=== PATIENT | female | born 1980 | race Caucasian/White ===

== ENCOUNTER 2021-03-13 18:08 | Emergency (ER) | payer OTHER, SELFPAY ==
--- NOTE | ~2021-03-13 | XR_ITS ---
EXAMINATION: XR CHEST CLINICAL INFORMATION: TIA COMPARISON: None TECHNIQUE: Frontal view of the chest was obtained. FINDINGS: No significant abnormality is noted involving the heart, lungs, mediastinum, bony thorax or soft tissues. XR/XR chest 1V IMPRESSION: Unremarkable examination.
--- NOTE | ~2021-03-13 | MR_ITS ---
EXAMINATION: MR BRAIN WITHOUT CONTRAST CLINICAL INFORMATION: Headache. Dizziness. Left visual field loss. Transient ischemic attack. COMPARISON: CT head from 03/13/2021. TECHNIQUE: MRI of the brain was obtained using routine sequences without contrast. FINDINGS: No focal restricted diffusion is demonstrated to suggest acute or subacute cerebral ischemia. No evidence of acute or chronic hemorrhagic products on heme-sensitive imaging. Normal parenchymal signal characteristics. The ventricles are normal in morphology and size. No abnormal mass effect. No midline shift. Normal appearance of the pituitary gland. The suprasellar cistern remains widely patent. Normal positioning of the cerebellar tonsils. Normal arterial and venous vascular flow voids are present. Normal, homogeneous marrow signal. Mild mucosal thickening of the paranasal sinuses. Moderate rightward nasal septal deviation. No signal abnormalities within the mastoids. Limited evaluation of the orbits without demonstrated significant abnormalities. MR/MR head/brain wo con IMPRESSION: 1. No acute intracranial abnormalities. 2. No MRI abnormalities to explain the patient's symptoms.
--- NOTE | ~2021-03-13 | CT_ITS ---
EXAMINATION: CT HEAD WITHOUT CONTRAST CLINICAL INFORMATION: Left-sided visual field defect and headache. COMPARISON: None TECHNIQUE: Contiguous axial imaging was performed from the skull base to vertex without intravenous administration of contrast. This CT examination was performed using dose optimization techniques as appropriate, variously including the following: *Automated exposure control *Adjustment of mA and/or kV according to patient size (this includes techniques or standardized protocols for targeted exams where dose is matched to indication/reason for exam; i.e. extremities or head) *Use of iterative reconstruction technique DLP: 696 mGy-cm FINDINGS: There is no evidence of acute intracranial hemorrhage or territorial infarction. No abnormal mass effect or midline shift is seen. Huang to white matter differentiation is well preserved. No extra-axial fluid collections are identified. The ventricles are normal in size. There is no abnormal attenuation within the brain parenchyma. I'll hyperostosis frontalis. No soft tissue abnormality.. Mild secretions dependently within the left portion of the sphenoid sinus. The mastoid air cells and visualized portions of the paranasal sinuses are otherwise well aerated. CT/CT head/brain wo con IMPRESSION: No acute intracranial pathology.
[2021-03-13 18:18] VITALS: BP 135/78; PULSE 83; RESP 18; TEMP 36.6; O2SAT 98; BMI 32.5
--- NOTE | 2021-03-13 18:31 | ECG_ITS ---
Test Reason : VISION CHANGE Blood Pressure : / mmHG Vent. Rate : 077 BPM Atrial Rate : 077 BPM P-R Int : 182 ms QRS Dur : 088 ms QT Int : 408 ms P-R-T Axes : 053 027 028 degrees QTc Int : 461 ms Normal sinus rhythm Normal ECG No previous ECGs available Referred By: Alyssa Wolfe Electronically Signed By:Willem Marks
--- NOTE | 2021-03-13 18:34 | ED.EYEPROB ---
HPI - Eye Problem General Chief complaint: Eye Problems Stated complaint: VISION LOSS LEFT EYE BLIND SPOT Time Seen by Provider: 03/13/21 18:29 Source: patient Mode of arrival: ambulatory Limitations: no limitations History of Present Illness HPI Narrative: 41-year-old female came in for evaluation of left eye visual problems. Started at 05:00 o'clock about 1 hour before arrival patient noted she lost her left visual field patient was clearly blind on the left visual field, patient also was complaining of right-sided headache, and feeling dizziness, patient otherwise declines any other neurological deficit, no speech or weakness or sensory loss. Patient also declined any eye pain. During the exam patient reported that her vision is back to her normal, no blindness. Related Data Allergies Allergy/AdvReac Type Severity Reaction Status Date / Time codeine AdvReac Mild Vomiting Verified 03/13/21 18:31 Review of Systems Review of Systems: All other systems are reviewed and are negative Constitutional: Reports as per HPI and Reports no additional constitutional complaints Eyes: Reports as per HPI and Reports no additional eye complaints Reports system reviewed and no additional complaints, except as documented Cardiovascular: Reports as per HPI and Reports no additional cardiovascular complaints Respiratory: Reports as per HPI and Reports no additional respiratory complaints Gastrointestinal: Reports as per HPI and Reports no additional gastrointestinal complaints Genitourinary: Reports no additional female genitourinary complaints Musculoskeletal: Reports no additional musculoskeletal complaints Skin/Breast: Reports system reviewed and no additional complaints, except as docu Psychiatric: Reports no additional psychiatric complaints Endocrine: Reports no additional endocrine complaints Hematologic/Lymphatic: Reports no additional hematologic/lymphatic complaints Allergic/Immunologic: Reports no additional allergic/immunologic complaints Reports system reviewed and no additional complaints, except as documented and Reports Abnormal speech present [facility] Social History Social History Advance Directives: No Advance Directives Information Provided: No Physical Exam Vital Signs: Vital Signs: Last Vital Signs Temp 98 F 03/13/21 18:18 Pulse 83 03/13/21 18:18 Resp 18 03/13/21 18:18 BP 135/78 03/13/21 18:18 Pulse Ox 98 03/13/21 18:18 BMI result Body Mass Index 32.5 Vital signs have been reviewed as appeared to be correct. Blood pressure normal. Heart rate normal. Respiration rate normal. Temperature normal. Oxygen saturation normal. Appearance: Alert. Oriented X3. No acute distress. Head: Normal external exam. Normocephalic. Atraumatic. No Enciso signs noted. No raccoon eyes noted Eyes: PERRLA. EOMI. Conjunctiva and sclera normal. Eyelids normal. ENT: TM's Normal. Pharynx normal. Uvula midline. Moist mucous membranes. No trismus noted. No drooling noted. No muffled voice noted. Neck: Normal inspection. Neck supple. FROM. No adenopathy. Thyroid Normal. No meningeal signs. No neck mass noted. CVS: Normal heart rate and rhythm. Heart sound normal. No murmurs noted. Pulses normal throughout. Respiratory: No respiratory distress. Painless inspiration. Breath sounds normal. No wheezes/rales/rhonchi noted. Chest nontender. No accessory muscle usage noted or decreased air movement noted. Abdomen: Soft and nontender. Bowel sounds normal in all 4 quadrants. No distention noted. No organomegaly noted. No visible injury noted. Back: No CVA tenderness. Full range of motion noted. Skin: Skin warm and dry. Normal skin color. Normal skin turgor. No rashes/lesions/lacerations noted. Extremities: No lower extremity edema. Extremities exhibit normal range of motion. Extremities nontender. Neuro: Oriented X 3. Cranial nerve exam: II-XII are grossly intact No motor deficit. No sensory deficit. Reflexes normal. NIH Stroke Scale Level of Consciousness: Alert Level of Consciousness Questions: Answers both questions correctly Level of Consciousness Commands: Performs both tasks correctly Best Gaze: Normal Visual: No visual loss Facial Palsy: Normal Motor Arm (Right): No drift Motor Arm (Left): No drift Motor Leg (Right): No drift Motor Leg (Left): No drift Limb Ataxia: Absent Sensory: Normal Best Language: No aphasia Dysarthia: Normal Extinction and Inattention: No abnormality Score: 0 Course Course Course Narrative: Assessment and plan. 41-year-old female came in for transient loss of left visual field in the left eye. Patient now has a normal eye exam, normal neuro exam, CT/MRI of the brain show no acute finding, repeat eye exam showed normal visual acuity and normal visual field bilaterally. Stable vital signs, unremarkable labs. Will discharge the patient to follow up with Dr. Fernandez as an outpatient. [facility] - Eye Problem Medical Records Attestation: I reviewed the patient's medical records. Lab Data Attestation: I reviewed the patient's lab results. Result diagrams: 03/13/21 19:14 03/13/21 19:14 Labs: Lab Results 03/13/21 03/13/21 03/13/21 Range/Units 19:14 19:14 19:14 WBC 10.5 (4.8-10.8) X10*3/uL RBC 4.03 L (4.20-5.50) X10*6/uL Hgb 12.2 (12.0-16.0) g/dl Hct 36.6 L (37.0-47.0) % MCV 90.8 (80.0-98.0) fL MCH 30.3 (27.0-33.0) pg MCHC 33.3 (31.0-35.0) g/dl RDW 12.7 (11.0-16.0) % Plt Count 295 (160-400) X10*3/uL MPV 9.5 (9.4-12.3) fL Immature Gran % (Auto) 0.2 (0.0-0.4) % Neut % (Auto) 58.3 (45-73) % Lymph % (Auto) 30.8 (20-40) % [place] % (Auto) 9.1 (2-11) % Eos % (Auto) 1.1 (0-4) % Baso % (Auto) 0.5 (0-2) % Lymph # (Auto) 3.2 (1.2-4.9) X10*3/uL [place] # (Auto) 1.0 (0.1-1.2) X10*3/uL Eos # (Auto) 0.1 (0.0-0.4) X10*3/uL Baso # (Auto) 0.1 (0.0-0.2) X10*3/uL Abs Immat Gran (auto) 0.02 (0.00-0.03) X10*3/uL Absolute Neuts (auto) 6.1 (2.0-8.3) x10*3/uL Absolute Nucleated RBC 0.000 (0.0-0.012) X10*3/uL Nucleated RBC % (auto) 0.0 (0.0-0.2) /100WBC Sodium 139 (135-145) mmol/L Potassium 4.6 (3.3-5.1) mmol/L Chloride 108 (96-108) mmol/L Carbon Dioxide 25 (22-29) mmol/L Anion Gap 11 L (12-20) BUN 12 (9-16) mg/dL Creatinine 0.76 (0.5-1.4) mg/dL Estim Creat Clear Calc 102.4 Estimated GFR > 60 Random Glucose 92 (60-115) mg/dL Calcium 9.3 (8.4-10.2) mg/dL Total Bilirubin 0.4 (0.0-1.0) mg/dL Direct Bilirubin 0.2 (0.0-0.5) mg/dL AST 19 (5-31) U/L ALT 25 (0-31) U/L Alkaline Phosphatase 70 (39-117) U/L Troponin I High Sens < 3.5 (<3.5-17.0) ng/L Total Protein 6.9 (6.5-8.0) g/dL Albumin 4.1 (3.5-5.0) g/dL Lipase 20 (8-78) U/L Urine Color Urine Appearance Urine pH (5.0-8.0) Ur Specific [place] (1.005-1.025) Urine Protein (NEG-TRACE) MG/DL Urine Glucose (UA) (NEG) MG/DL Urine Ketones (NEG) MG/DL Urine Blood (NEG) Urine Nitrite (NEG) Ur Leukocyte Esterase (NEG) Urine RBC (0) /HPF Urine WBC (0-4) /HPF Ur Squamous Epith Cells /LPF Urine Bacteria /LPF 03/13/21 Range/Units 19:26 WBC (4.8-10.8) X10*3/uL RBC (4.20-5.50) X10*6/uL Hgb (12.0-16.0) g/dl Hct (37.0-47.0) % MCV (80.0-98.0) fL MCH (27.0-33.0) pg MCHC (31.0-35.0) g/dl RDW (11.0-16.0) % Plt Count (160-400) X10*3/uL MPV (9.4-12.3) fL Immature Gran % (Auto) (0.0-0.4) % Neut % (Auto) (45-73) % Lymph % (Auto) (20-40) % [place] % (Auto) (2-11) % Eos % (Auto) (0-4) % Baso % (Auto) (0-2) % Lymph # (Auto) (1.2-4.9) X10*3/uL [place] # (Auto) (0.1-1.2) X10*3/uL Eos # (Auto) (0.0-0.4) X10*3/uL Baso # (Auto) (0.0-0.2) X10*3/uL Abs Immat Gran (auto) (0.00-0.03) X10*3/uL Absolute Neuts (auto) (2.0-8.3) x10*3/uL Absolute Nucleated RBC (0.0-0.012) X10*3/uL Nucleated RBC % (auto) (0.0-0.2) /100WBC Sodium (135-145) mmol/L Potassium (3.3-5.1) mmol/L Chloride (96-108) mmol/L Carbon Dioxide (22-29) mmol/L Anion Gap (12-20) BUN (9-16) mg/dL Creatinine (0.5-1.4) mg/dL Estim Creat Clear Calc Estimated GFR Random Glucose (60-115) mg/dL Calcium (8.4-10.2) mg/dL Total Bilirubin (0.0-1.0) mg/dL Direct Bilirubin (0.0-0.5) mg/dL AST (5-31) U/L ALT (0-31) U/L Alkaline Phosphatase (39-117) U/L Troponin I High Sens (<3.5-17.0) ng/L Total Protein (6.5-8.0) g/dL Albumin (3.5-5.0) g/dL Lipase (8-78) U/L Urine Color YELLOW Urine Appearance CLEAR Urine pH 7.0 (5.0-8.0) Ur Specific [place] 1.015 (1.005-1.025) Urine Protein NEG (NEG-TRACE) MG/DL Urine Glucose (UA) NEG (NEG) MG/DL Urine Ketones 15 (NEG) MG/DL Urine Blood TRACE (NEG) Urine Nitrite NEG (NEG) Ur Leukocyte Esterase NEG (NEG) Urine RBC 0-2 (0) /HPF Urine WBC 0-2 (0-4) /HPF Ur Squamous Epith Cells TRACE /LPF Urine Bacteria TRACE /LPF Imaging Data Chest x-ray: Attestation: I personally reviewed and interpreted this imaging study as follows: Radiologist's impression: Unremarkable examination. CT scan - head: Attestation: I personally reviewed and interpreted this imaging study as follows: Radiologist's impression: No acute intracranial pathology. MRI of the brain: Attestation: I personally reviewed and interpreted this imaging study as follows: Radiologist's impression: 1. No acute intracranial abnormalities. 2. No MRI abnormalities to explain the patient's symptoms. ECG Data Attestation: I personally reviewed and interpreted this ECG as follows: Interpretation: Normal sinus rhythm at 77 beats per minutes, normal axis deviation, normal intervals, no ST-T changes. Discharge Plan Discharge Clinical Impression: Vision problem Patient Disposition: Home, Self-Care Instructions: Blurred Vision (ED) Referrals: José Miguel Fernandez [Physician] - 2 days
[2021-03-13 19:21] LABS: MANUAL DIFF FLAG NO
[2021-03-13 19:25] LABS: Basophils Absolute Auto 0.1 X10*3/uL (0.0-0.2); Basophils Percent Auto 0.5 % (0-2); Eosinophils Absolute Auto 0.1 X10*3/uL (0.0-0.4); Eosinophils Percent Auto 1.1 % (0-4); Hematocrit 36.6 % (37.0-47.0); Hemoglobin 12.2 g/dl (12.0-16.0); Imm Gran Abs Auto 0.02 X10*3/uL (0.00-0.03); Imm Gran Pct Auto 0.2 % (0.0-0.4); Lymphocytes Absolute Auto 3.2 X10*3/uL (1.2-4.9); Lymphocytes Percent Auto 30.8 % (20-40); Mean Corpuscular HGB Conc 33.3 g/dl (31.0-35.0); Mean Corpuscular Hemoglobin 30.3 pg (27.0-33.0); Mean Corpuscular Volume 90.8 fL (80.0-98.0); Mean Platelet Volume 9.5 fL (9.4-12.3); Monocytes Percent Auto 9.1 % (2-11); Neutrophils Absolute Auto 6.1 x10*3/uL (2.0-8.3); Neutrophils Percent Auto 58.3 % (45-73); Platelet Count 295 X10*3/uL (160-400); Red Blood Count 4.03 X10*6/uL (4.20-5.50); Red Cell Distribution Width 12.7 % (11.0-16.0); White Blood Count 10.5 X10*3/uL (4.8-10.8)
[2021-03-13 19:37] LABS: Appearance Urine CLEAR; Color Urine YELLOW; Glucose Urine UA NEG (NEG); Leukocyte Esterase Urine NEG (NEG); Nitrite Urine NEG (NEG); Specific Gravity - Urine 1.015 (1.005-1.025); UACC Culture Trigger NO; Urine Blood TRACE (NEG); Urine Ketones 15 MG/DL (NEG); Urine Protein NEG (NEG-TRACE)
[2021-03-13 19:41] LABS: Alanine Aminotransferase 25 U/L (0-31); Albumin Level 4.1 g/dL (3.5-5.0); Alkaline Phosphatase 70 U/L (39-117); Anion Gap 11 (12-20); Aspartate Amino Transferase 19 U/L (5-31); Bilirubin Direct 0.2 mg/dL (0.0-0.5); Bilirubin Total 0.4 mg/dL (0.0-1.0); Blood Urea Nitrogen 12 mg/dL (9-16); Calcium 9.3 mg/dL (8.4-10.2); Carbon Dioxide 25 mmol/L (22-29); Chloride 108 mmol/L (96-108); Creatinine Clr Calc Pharmacy 102.4; Estimated Glomerular Filt Rate > 60; Glucose Random 92 mg/dL (60-115); Lipase 20 U/L (8-78); Potassium 4.6 mmol/L (3.3-5.1); Sodium 139 mmol/L (135-145); Total Protein 6.9 g/dL (6.5-8.0)
[2021-03-13 19:45] LABS: Troponin-I High Sensitivity < 3.5 ng/L (<3.5-17.0)
[2021-03-13 20:13] LABS: Bacteria Urine TRACE /LPF; RBC Urine 0-2 /HPF (0); Squamous Epithelial Cell Urine TRACE /LPF; WBC Urine 0-2 /HPF (0-4)
== END 2021-03-13 21:23 | disposition home or self-care (01) ==
PROVIDERS: Emergency Provider Emergency Medicine; PCP Internal Medicine
DX: H54.7 Unspecified visual loss (principal); R51.9 Headache, unspecified; Z79.899 Other long term (current) drug therapy
CPT/HCPCS: 36415; 70450; 70551; 71045; 80048; 80076; 81001; 83690; 84484; 85025; 93005; 99283; 99285

== ENCOUNTER 2022-01-22 13:18 | Outpatient (REF) | payer OTHER, SELFPAY ==
[2022-01-22 13:26] LABS: MANUAL DIFF FLAG NO
[2022-01-22 13:48] LABS: Basophils Absolute Auto 0.1 X10*3/uL (0.0-0.2); Basophils Percent Auto 0.4 % (0-2); Eosinophils Absolute Auto 0.1 X10*3/uL (0.0-0.4); Eosinophils Percent Auto 0.9 % (0-4); Hematocrit 39.7 % (37.0-47.0); Hemoglobin 12.8 g/dl (12.0-16.0); Imm Gran Abs Auto 0.03 X10*3/uL (0.00-0.03); Imm Gran Pct Auto 0.3 % (0.0-0.4); Lymphocytes Absolute Auto 2.5 X10*3/uL (1.2-4.9); Lymphocytes Percent Auto 21.1 % (20-40); Mean Corpuscular HGB Conc 32.2 g/dl (31.0-35.0); Mean Corpuscular Hemoglobin 27.5 pg (27.0-33.0); Mean Corpuscular Volume 85.4 fL (80.0-98.0); Mean Platelet Volume 10.1 fL (9.4-12.3); Monocytes Absolute Auto 1.2 X10*3/uL (0.1-1.2); Monocytes Percent Auto 9.7 % (2-11); Neutrophils Percent Auto 67.6 % (45-73); Platelet Count 330 X10*3/uL (160-400); Red Blood Count 4.65 X10*6/uL (4.20-5.50); White Blood Count 11.9 X10*3/uL (4.8-10.8)
[2022-01-22 14:16] LABS: Alanine Aminotransferase 37 U/L (0-31); Albumin Level 4.3 g/dL (3.5-5.0); Alkaline Phosphatase 104 U/L (39-117); Anion Gap 15 (12-20); Aspartate Amino Transferase 21 U/L (5-31); Bilirubin Total 0.5 mg/dL (0.0-1.0); Blood Urea Nitrogen 10 mg/dL (9-16); Calcium 9.3 mg/dL (8.4-10.2); Carbon Dioxide 26 mmol/L (22-29); Chloride 104 mmol/L (96-108); Estimated Glomerular Filt Rate > 60; Glucose Random 79 mg/dL (60-115); Sodium 141 mmol/L (135-145); Total Protein 7.4 g/dL (6.5-8.0)
== END 2022-01-22 13:19 | disposition home or self-care (01) ==
LOC: HO.LAB 13:18
PROVIDERS: PCP Internal Medicine; Visit Provider Nurse Practitioner
DX: Z01.812 Encounter for preprocedural laboratory examination (principal); K22.70 Barrett's esophagus without dysplasia; K20.90 Esophagitis, unspecified without bleeding
CPT/HCPCS: 36415; 80053; 85025

== ENCOUNTER 2022-01-28 15:43 | Outpatient (REF) | payer OTHER, SELFPAY ==
[2022-01-31 12:11] LABS: HPV mRNA E6/E7 rflx Not Detected (Not Detected)
== END 2022-01-28 15:44 | disposition home or self-care (01) ==
LOC: HO.LNP 15:43
PROVIDERS: Visit Provider Advanced Practice Midwife
DX: Z01.419 Encounter for gynecological examination (general) (routine) without abnormal findings (principal); Z11.51 Encounter for screening for human papillomavirus (HPV)
CPT/HCPCS: 87624; 88142

== ENCOUNTER 2022-03-15 15:28 | Outpatient (REF) | payer OTHER, SELFPAY ==
--- NOTE | ~2022-03-15 | MM_ITS ---
EXAMINATION: MM SCREENING DIGITAL BREAST TOMOSYNTHESIS, BILATERAL CLINICAL INFORMATION: Screening. Asymptomatic. The lifetime risk of breast cancer based on the Tyrer-Cuzick Model is 21.7%. Additional annual screening with breast MRI may be of benefit in women with a score of 20% or greater. COMPARISON: Mammography: October 31, 2020 and June 17, 2019 TECHNIQUE: Digital breast tomosynthesis is performed in both the craniocaudal and mediolateral oblique views along with computer-aided detection (CAD). Synthesized 2D images are generated from the tomosynthesis. FINDINGS: There are scattered areas of fibroglandular density (ACR BI-RADS breast composition Category b). There are no significant masses, abnormal calcifications, or other abnormalities. MM/MM tomosynthesis screening BI IMPRESSION: No significant changes from prior exam. ASSESSMENT: BI-RADS 1: Negative RECOMMENDATION: Routine annual mammography screening. Consideration of MRI with lifetime risk of greater than 20%. This patient's information was entered into a reminder system with a target due date for their next mammogram.
== END 2022-03-15 15:29 | disposition home or self-care (01) ==
LOC: HO.MAMMO 15:28
PROVIDERS: PCP Internal Medicine; Visit Provider Internal Medicine
DX: Z12.31 Encounter for screening mammogram for malignant neoplasm of breast (principal)
CPT/HCPCS: 77063; 77067

== ENCOUNTER 2022-10-18 08:00 | Outpatient (REF) | payer OTHER, SELFPAY ==
[2022-10-18 10:59] LABS: MANUAL DIFF FLAG NO
[2022-10-18 11:44] LABS: Basophils Percent Auto 0.4 % (0-2); Eosinophils Absolute Auto 0.1 X10*3/uL (0.0-0.4); Eosinophils Percent Auto 0.6 % (0-4); Hematocrit 41.7 % (37.0-47.0); Hemoglobin 13.5 g/dl (12.0-16.0); Imm Gran Abs Auto 0.03 X10*3/uL (0.00-0.03); Imm Gran Pct Auto 0.3 % (0.0-0.4); Lymphocytes Absolute Auto 1.9 X10*3/uL (1.2-4.9); Lymphocytes Percent Auto 18.5 % (20-40); Mean Corpuscular HGB Conc 32.4 g/dl (31.0-35.0); Mean Corpuscular Hemoglobin 29.1 pg (27.0-33.0); Mean Corpuscular Volume 89.9 fL (80.0-98.0); Mean Platelet Volume 10.7 fL (9.4-12.3); Monocytes Absolute Auto 0.7 X10*3/uL (0.1-1.2); Monocytes Percent Auto 7.4 % (2-11); Neutrophils Absolute Auto 7.3 x10*3/uL (2.0-8.3); Neutrophils Percent Auto 72.8 % (45-73); Platelet Count 274 X10*3/uL (160-400); Red Blood Count 4.64 X10*6/uL (4.20-5.50); Red Cell Distribution Width 13.4 % (11.0-16.0)
[2022-10-18 12:31] LABS: Alanine Aminotransferase 15 U/L (0-31); Albumin Level 4.2 g/dL (3.5-5.0); Alkaline Phosphatase 59 U/L (39-117); Anion Gap 11 (12-20); Aspartate Amino Transferase 16 U/L (5-31); Blood Urea Nitrogen 13 mg/dL (9-16); Calcium 9.4 mg/dL (8.4-10.2); Carbon Dioxide 26 mmol/L (22-29); Chloride 106 mmol/L (96-108); Estimated Glomerular Filt Rate > 60; Glucose Random 95 mg/dL (60-115); Potassium 3.7 mmol/L (3.3-5.1); Sodium 139 mmol/L (135-145); Total Protein 7.2 g/dL (6.5-8.0)
== END 2022-10-18 08:01 | disposition home or self-care (01) ==
LOC: HO.LAB 08:00
PROVIDERS: PCP Internal Medicine; Visit Provider Nurse Practitioner
DX: K21.9 Gastro-esophageal reflux disease without esophagitis (principal); R10.10 Upper abdominal pain, unspecified; K92.1 Melena
CPT/HCPCS: 36415; 80053; 85025

== ENCOUNTER 2022-10-18 08:00 | Outpatient (AMB) | payer OTHER, SELFPAY ==
--- NOTE | 2022-10-18 08:10 | MHC.OFFVIS ---
Intake Vital Signs 10/18/22 08:12 Height 5 ft 4 in Weight 182 lb BMI 31.2 BP 116/67 Blood Pressure Location Lt brachial Position Sitting Pulse 85 Intake Visit Reasons: gastritis, gerd complaints Intake Note: Patient follow up for new problem/Gastritis and GERD complain. Patient cc: abdominal pain, GERD, swallowing problem, weightloss and also blood in stool. Concrete Handler Required: No Accompanied by: Self / Same As Patient Allergies codeine Adverse Reaction (Mild, Verified 10/18/22 08:09) Vomiting HPI gastritis, gerd complaints HPI Details Assessment & Plan (1) Pre-op examination: ?Code(s): Z01.818 - Encounter for other preprocedural examination ?Plan: She was seen in the past by [facility] before coming to work at [employer] [facility] [place]. She developed gastritis after going on a Keto diet. Her sx are worse with fatty meals. She has tried omeprazole and pantoprazole which did not work for her. He has been using Pepcid complete as needed. She does not often feel HB but she does feel throat tightness.? She says she had an ultrasound that was unremarkable. She has never had an EGD. She has had vomiting with past anesthesia and sedation. She denies any cardiac or respiratory problems. No ID problems. NO FHX crc or polyps, SSBE but no esophageal cancer. I will see her after the EGD in at that point we will determine if her Pepcid is sufficient therapy or whether she needs to be moved to a more aggressive PPI coverage.? She was educated that sometimes people do not feel reflux even though it is doing damage and this could be her case since she has mostly throat tightness and not heartburn.? If she has any worsening problems and wants to be seen in the interim she is aware she can call the office to see me sooner. (2) Corado's esophagus with esophagitis: ?Code(s): K22.70 - Corado's esophagus without dysplasia; K20.90 - Esophagitis, unspecified without bleeding (3) GERD (gastroesophageal reflux disease): ?Code(s): K21.9 - Gastro-esophageal reflux disease without esophagitis ? ? ? Orders: Orders Comprehensive Met. Panel Today K20.90 - Esophagit is, unspecified wi thout bleeding, K2 2.70 - Corado's e sophagus without d ysplasia, Z01.818 - Encounter for ot her preprocedural examination ? Complete Blood Cou nt Auto Diff Today K20.90 - Esophagit is, unspecified wi thout bleeding, K2 2.70 - Corado's e sophagus without d ysplasia, Z01.818 - Encounter for ot her preprocedural examination ? LABS: EGD/COLONOSCOPY Scheduled for 11/18/2022 BIOPSY TODAY'S VISIT She has worsening sx of dyspepsia and upper abd pain, worse when stomach is empty. Yet she has not appetite. She gave up coffee and this helped somewhat, but she stopped pepcid as it was not helping. Also, has new rectal bleeding, one episode of BRB filling the bowel red, then tapering amounts on TT and clinging to the stool with clots. May be resolved now. Pain in sides, no rectal pain. Stools soft, no diarrhea or CIC, but did have roids in . FHX biliary dikinesia in mother, Gaby had neg US at [facility], will get HIDA. And HP stool. Try to add colonoscopy to EGD. She has failed pepcid, omeprazole, and pantoprazole for this, will try to get Acphex 20mg bid. Also labs and HP stool. ROV 3 weeks. PFSH Surgical History H/O dilation and curettage H/O tubal ligation Hx of section Family History Mother Breast cancer Dermatopathic lymphadenitis Father Diabetes 1.5, managed as type 2 Skin cancer Social History Household Members: Significant Other and Family Alcohol intake: current Patient Tobacco Use Status: Never used Tobacco Female Reproductive History Menstrual Age of Menarche: 13 Review of Systems Const Denies fatigue, Denies fever(s), Denies night sweats, Reports poor appetite and Denies weight loss ENT Reports Normal hearing present, Denies dental pain, Denies dysphagia, Denies hearing loss, Denies mouth pain, Denies odynophagia, Denies throat swelling, Denies tongue swelling and Reports other (Dentition adequate) Card Reports no additional complaints Resp Reports no additional complaints GI Reports abdominal pain, Denies melena, Denies bloating, Reports hematochezia, Denies constipation, Denies GI cramping, Denies dysphagia, Denies excessive flatus, Denies early satiety, Reports heartburn, Denies diarrhea, Denies nausea, Denies odynophagia, Denies vomiting and Denies hematemesis Skin/Breast Denies pruritus, Denies lesions, Denies rash and Denies jaundice Neuro Reports Normal hearing present and Denies Abnormal speech present Endo Denies fatigue Aller/Immun Denies throat swelling and Denies tongue swelling Physical Exam Vital Signs: Last Vital Signs Pulse 85 10/18/22 08:12 BP 116/67 10/18/22 08:12 BMI result Body Mass Index 31.2 Const General: cooperative, no acute distress, well developed and well groomed Nutritional Appearance: well nourished and obese Orientation/consciousness: oriented to person, oriented to place and oriented to time Limitations: No language barrier HEENT Head: Yes normocephalic and Yes atraumatic Eyes General: appearance normal, both eyes and all related structures Pupils: Equal, round and reactive pupils present Neck Neck: Yes normal visual inspection and Yes no lymphadenopathy Thyroid: Thyroid normal Resp Effort & Inspection: normal respiratory effort and able to speak in complete sentences Auscultation: clear to auscultation bilaterally Cardio Rate: regular rate Rhythm: regular rhythm Heart sounds: Normal, physiologic split S2 sound present Peripheral pulses: radial pulses present and posterior tibial pulses present GI Inspection: No distended, No Abdominal panniculus present and Yes obesity Palpation (GI): Soft to palpation, nontender, no guarding, not rigid and No hepatosplenomegaly present Percussion: Yes normal to percussion Auscultation: normal bowel sounds Rectal Exam - Female: deferred Skin General skin exam: no rashes or lesions noted, turgor normal, skin not dry, no jaundice, No spider nevi and no striae Rashes: no rashes Nails: normal Neuro General: oriented to person, oriented to place and oriented to time Cranial nerves: Yes Equal, round and reactive pupils present and Yes Normal hearing present Speech: No Abnormal speech present Extrem General: Yes normal to inspection, No clubbing, No cyanosis and No edema Psych Appearance: grossly normal and well kempt Mental Status: mental status grossly normal Speech and movement: Normal speech and movement present Affect: normal affect Attitude: cooperative Thought process: Normal thought process present and not confabulating Thought content: Normal thought content present Insight: Limited insight present (Psych) Judgement: Limited judgement present (Psych) Assessment & Plan Assessment & Plan (1) GERD (gastroesophageal reflux disease): Code(s): K21.9 - Gastro-esophageal reflux disease without esophagitis Plan: EGD/COLONOSCOPY Scheduled for 11/18/2022 BIOPSY TODAY'S VISIT She has worsening sx of dyspepsia and upper abd pain, worse when stomach is empty. Yet she has not appetite. She gave up coffee and this helped somewhat, but she stopped pepcid as it was not helping. Also, has new rectal bleeding, one episode of BRB filling the bowel red, then tapering amounts on TT and clinging to the stool with clots. May be resolved now. Pain in sides, no rectal pain. Stools soft, no diarrhea or CIC, but did have roids in . FHX biliary dikinesia in mother, Gaby had neg US at [facility] [place], will get HIDA. And HP stool. Try to add colonoscopy to EGD. She has failed pepcid, omeprazole, and pantoprazole for this, will try to get Acphex 20mg bid. Also labs and HP stool. ROV 3 weeks. (2) Upper abdominal pain: Code(s): R10.10 - Upper abdominal pain, unspecified (3) Hematochezia: Code(s): K92.1 - Melena Orders: Orders Comprehensive Met. Panel 10/18/22 R10.10 - Upper abdominal pain, unspecified, K92.1 - Melena Complete Blood Count Auto Diff 10/18/22 R10.10 - Upper abdominal pain, unspecified, K92.1 - Melena NM hepatobiliary w pharm 10/18/22 R10.10 - Upper abdominal pain, unspecified, K92.1 - Melena H pylori Ag Stool 10/23/22 R10.10 - Upper abdominal pain, unspecified, K92.1 - Melena Medications: New peg 3350-electrolytes 236-22.74-6.74 -5.86 gram (Golytely) until fecal effluent is clear; do not exceed a total volume of 2,000 mL 240 mL PO Q10M 4,000 mL 0RF 1 day Z12.11 - Encounter for screening for malignant neoplasm of colon rabeprazole (AcipHex) 20 mg PO BID 60 tabs 3RF R10.10 - Upper abdominal pain, unspecified Coding Level of Care Code Est Pt Level 3 (28702) Diagnoses GERD (gastroesophageal reflux disease) K21.9 Upper abdominal pain R10.10 Hematochezia K92.1
[2022-10-18 08:12] VITALS: BP 116/67; PULSE 85; BMI 31.2
== END 2022-10-18 08:37 | disposition home or self-care (01) ==
PROVIDERS: PCP Internal Medicine; Visit Provider Nurse Practitioner
DX: K21.9 Gastro-esophageal reflux disease without esophagitis (principal); R10.10 Upper abdominal pain, unspecified; K92.1 Melena
CPT/HCPCS: 99213

== ENCOUNTER 2022-10-22 18:00 | Outpatient (REF) | payer OTHER, SELFPAY | END 2022-10-22 18:01 | disposition home or self-care (01) | LOC: HO.LNP 18:00 | PROVIDERS: Visit Provider Nurse Practitioner | DX: K92.1 Melena (principal); R10.10 Upper abdominal pain, unspecified | CPT/HCPCS: 87338 ==

== ENCOUNTER → 2022-11-11 07:54 | Outpatient (REF) | payer OTHER, SELFPAY ==
--- NOTE | ~2022-11-11 | NM_ITS ---
EXAMINATION: BILIARY TRACT IMAGING STUDY WITH CCK CLINICAL INFORMATION: Upper abdominal pain.. COMPARISON: No previous biliary scan is available for comparison.. TECHNIQUE: Serial gamma scintillation camera images were obtained over the abdomen for a total observation period of 90 minutes following the intravenous administration of 5 mCi Tc-99m Mebrofenin. FINDINGS: There is good concentration of activity in the liver by 5 minutes post injection. Biliary activity is visualized by 15 minutes. The gallbladder is well visualized by 25 minutes. Small bowel is well visualized by 75 minutes. At 60 minutes post radiopharmaceutical injection, a 30-minute infusion of 1.7 micrograms Sincalide was then begun and an additional 30 minutes of images were obtained. There is good emptying of the gallbladder. By the end of the study there is good clearance of activity from the liver and visualization of diffuse small bowel activity. The calculated gallbladder ejection fraction is 57% (normal gallbladder ejection fraction is greater than 35%). NM/NM hepatobiliary w pharm IMPRESSION: Visualization of the gallbladder is evidence of a patent cystic duct and strong evidence against the diagnosis of acute cholecystitis. The common bile duct is patent. Gallbladder emptying and ejection fraction are normal. Liver function appears normal.
== END ==
LOC: HO.NUCMED 07:54
PROVIDERS: PCP Internal Medicine; Visit Provider Nurse Practitioner
DX: R10.10 Upper abdominal pain, unspecified (principal); K92.1 Melena
CPT/HCPCS: 78227; A9537; J2805

== ENCOUNTER 2022-11-18 09:15 | Day surgery (SDC) | payer OTHER, SELFPAY ==
--- NOTE | 2022-11-15 11:55 | HO.ANESPROP2 ---
Documented by User: Dipti Jones NP 11/15/22 11:56 HPI - Anesthesia Eval Consult details Narrative: 42yo F for Upper Endoscopy and Colonoscopy PMFSH Active Problems Active Problems: All Active Problems (Updated 10/18/22 @ 08:27 by LYDIA Madison) Hematochezia (Acute) Upper abdominal pain (Acute) Cervical cancer screening (Acute) Well woman exam with routine gynecological exam (Acute) GERD (gastroesophageal reflux disease) (Acute) Obesity (Acute) Ocular migraine (Acute) Family History Family History Mother Breast cancer Dermatopathic lymphadenitis Father Diabetes 1.5, managed as type 2 Skin cancer Surgical History Surgical History H/O dilation and curettage H/O tubal ligation Hx of section Social History Social History Household Members: Significant Other and Family Alcohol intake: current Alcohol intake frequency: holidays/special occasions only Patient Tobacco Use Status: Never used Tobacco Are you DNR?: No Advance Directives: No Advance Directives Information Provided: Yes Patient : No Meds Allergies Allergy/AdvReac Type Severity Reaction Status Date / Time codeine AdvReac Mild Vomiting Verified 10/18/22 08:09 Exam Exam Date and Time: November 15, 2022 1155 Pertinent Lab Results Pertinent Lab Results: Laboratory Tests 10/18/22 10/18/22 10:56 10:56 WBC 10.0 Hgb 13.5 Hct 41.7 Plt Count 274 Sodium 139 Potassium 3.7 Chloride 106 Carbon Dioxide 26 BUN 13 Creatinine 0.71 Assessment and Plan Assessment Anesthesia Assessment: Chart Reviewed Documented by User: Concha Sims MD 11/18/22 10:53 PMFSH Active Problems Active Problems: All Active Problems (Updated 11/18/22 @ 10:28 by Concha Sims MD) Hematochezia (Acute) Upper abdominal pain (Acute) Cervical cancer screening (Acute) Well woman exam with routine gynecological exam (Acute) GERD (gastroesophageal reflux disease) (Acute) Obesity (Acute) Ocular migraine (Acute) Family History Family History Mother Breast cancer Dermatopathic lymphadenitis Father Diabetes 1.5, managed as type 2 Skin cancer Family history of problems with anesthesia: No Surgical History Surgical History H/O dilation and curettage H/O tubal ligation Hx of section History of Problems with Anesthesia: Yes (PONV after D&C) Social History Social History Household Members: Significant Other and Family Alcohol intake: current Alcohol intake frequency: holidays/special occasions only Patient Tobacco Use Status: Never used Tobacco Are you DNR?: No Advance Directives: No Advance Directives Information Provided: Yes Patient : No Meds Allergies Allergy/AdvReac Type Severity Reaction Status Date / Time codeine AdvReac Mild Vomiting Verified 10/18/22 08:09 Exam Height,Weight and Vital Signs: Height 5 ft 4 in Weight 82.554 kg Vital Signs Temp Pulse Resp BP Pulse Ox O2 Del Method 11/18/22 09:29 97 F 76 20 130/83 98 Room Air Airway Mallampati Class: II TM Dist: >3cm Neck ROM: Full Loose/Missing/Broken Teeth: No (Denies broken, loose, missing teeth) Heart: RRR Lungs: CTAB Assessment and Plan Assessment Anesthesia Assessment: Anesthesia Plan Discussed Final Anesthetic Review Family History of Problems with Anesthesia: No History of Problems with Anesthesia: Yes (PONV after D&C) NPO: Yes ASA Class: II Final Preanesthetic Review: No Changes in Pt Med Stat, Meds/Allgs Chart Reviewed, Consent Obtained/Reviewed and Anes Risks/Benef Reviewed Patient Risk: Low Procedure Risk: Low Assessment/Block/Sedation in SS: Assess/Block/Sedation-SS Anesthetic Plan Anesthetic Plan: MAC: Disposition: Standard PACU
[2022-11-18 06:05] VITALS: BMI 31.2
[2022-11-18 09:29] VITALS: BP 130/83; PULSE 76; RESP 20; TEMP 36.1; O2SAT 98
[2022-11-18] MEDS: Lactated Ringers 1,000 ML 100 ML IVCONT (09:42)
--- NOTE | 2022-11-18 09:54 | MHC.SHP ---
Pre-Procedural Eval Section A Date of Service: 11/18/22 The patient is an INPATIENT: No The History & Physical has been completed within 30 days and I have reviewed it.: No Section B Chief Complaint: Corado's esophagus,Esophagitis,GERD, rectal bleed Relevant Family History (Specify if Yes): No Relevant Social History: None Present Medications: see Short Stay Collaborative assessment Medical History: No relevant PMH History of Previous Operations: Relevant previous surgery/procedure and date(s) (H/O dilation and curettage H/O tubal ligation Hx of section) Allergies: Allergies Allergy/AdvReac Type Severity Reaction Status Date / Time codeine AdvReac Mild Vomiting Verified 10/18/22 08:09 Review of Systems Sugical H&P ROS: Negative: Constitution, Cardiovascular, Respiratory and Gastrointestinal Exam Surgical H&P Exam: Normal: Heart, Normal: Lungs, Normal: Extremities and Normal: Abdomen Plan Diagnosis/Plan: Unchanged I have reviewed the history and physical and performed a pertinent physical examination on my patient. No changes have occurred unless specified. Time Spent With Patient Time: Total time managing care of this patient today ____ minutes.
--- NOTE | 2022-11-18 10:44 | W.PM.OPN ---
Operative Note Operative Note Date of Service: 11/18/22 Narrative: FLEXIBLE TRANSORAL UPPER GASTROINTESTINAL ENDOSCOPY WITH BIOPSIES AND COLONOSCOPY TILL CECUM WITH BIOPSIES Pre-op diagnosis: GERD, dyspepsia, upper abdominal pain, rectal bleeding Post-op diagnosis: GERD, Gastritis, colon polyps, diverticulosis, hemorrhoids Endoscopist:? Yessenia Jorgensen MD Anesthesia:?MAC UPPER ENDOSCOPY Consent: Indications for the procedure and potential complications of bleeding, perforation, reaction to medications and missed diagnosis were discussed with the patient and informed consent was obtained. Instrument: Olympus GIF H 190 mid size upper endoscope Monitoring: Vital signs and clinical assessment, continuous EKG monitoring, Pulse oximetry, Carbon Dioxide monitoring and blood pressure monitoring were done throughout the procedure. Procedure: The patient was placed in the left lateral decubitis position and pre-procedure medications were administered and a bite block was placed. The endoscope was inserted into the mouth and advanced under direct vision to the third part of duodenum. A careful inspection was made as the upper endoscope was withdrawn including a retroflexed examination of the proximal stomach; Findings and interventions are described below. Findings: Larynx: Obscured by the epiglottis Esophagus: GE junction at 35 cms. Irregular Z line - biopsied to check for Corado's. No esophagitis Stomach: Mild gastric antral erythema. Biopsies were obtained. Grade 2 flap valve on retroflexed examination of the cardia. Duodenum: Normal bulb and descending duodenum. Biopsies were obtained from 3rd part of the duodenum to check for celiac sprue Intervention: Biopsies as noted above COLONOSCOPY PROCEDURE NOTE Consent: Indications for the procedure and potential complications of bleeding, perforation, reaction to medications and missed diagnosis were discussed with the patient and informed consent was obtained. Instrument: Olympus PCF H 190 L variable stiffness pediatric colonoscope Monitoring: Vital signs and clinical assessment, intermittent blood pressure monitoring, continuous EKG monitoring, Pulse oximetry and Carbon Dioxide monitoring were done throughout the procedure. Colon withdrawl time was 19 minutes. Procedure: The patient was placed in the left lateral decubitis position and pre-procedure medications were administered. After a digital rectal examination of the ano-rectum, the video colonoscope was inserted into the rectum and advanced through the colon to the cecum. The colonoscope was slowly withdrawn in a retrograde panoramic fashion and the colon mucosa was carefully examined including a retroflexed view of the rectum. Findings and interventions are described below. Procedure Difficulty: : Without difficulty Findings: Terminal Ileum: Not evaluated Cecum: Normal Ascending Colon: A 6-7 mm sessile polyp in the distal AC/HF - removed with the cold biopsy Transverse Colon: Normal Descending Colon: Normal Sigmoid Colon: Mild diverticulosis Rectum: Two 4-5 mm diminutive appearing polyps - removed with a cold biopsy Ano-rectum: Moderate internal hemorrhoids Colon preparation: Excellent Impression and Post Procedure Diagnosis: Endoscopy Findings: ESOPHAGUS: GE junction at 35 cms. Irregular Z line - biopsied to check for Corado's. STOMACH: Gastritis DUODENUM: Normal - biopsied to check for celiac sprue Colonoscopy Findings: Three polyps removed Mild diverticulosis seen in the sigmoid colon Moderate hemorrhoids on retroflexed exam. Plan: Await pathology results Patient has an appointment on 11/26/22 in the [facility] with Helena Wu NP. Repeat Colonoscopy interval based on path results - in 3-5 years if polyps are adenomatous and 10 years if polyps are hyperplastic. Above findings were reviewed with the patient and GERD, colon polyps and diverticulosis handouts were given in the discharge area BIOPSIES SHOWED: A.? Small bowel, biopsy:? Small intestinal mucosa within normal limits; negative for celiac disease. B.? Stomach, antrum, biopsy:? Antral-type and oxyntic mucosa with mild chronic inactive inflammation; no Helicobacter organisms seen. C.? GE junction, biopsy: - Cardiofundic-type mucosa with moderate chronic, focally active, inflammation; no intestinal metaplasia seen. - Squamous mucosa within normal limits. D.? Colon, ascending, polypectomy:? Tubular adenoma; negative for high-grade dysplasia or carcinoma. E.? Rectum, polypectomies: - Tubular adenoma; negative for high-grade dysplasia or carcinoma. - Hyperplastic mucosal polyps.
[2022-11-18 11:39] VITALS: BP 103/59; PULSE 79; RESP 12; TEMP 36.1; O2SAT 97
[2022-11-18 11:54] VITALS: BP 106/68; PULSE 60; RESP 16; O2SAT 97
[2022-11-18 12:09] VITALS: BP 102/73; PULSE 57; RESP 16; TEMP 36.1; O2SAT 97
== END 2022-11-18 13:08 | disposition home or self-care (01) ==
PROVIDERS: PCP Internal Medicine; Visit Provider Internal Medicine Gastroenterology
PROC: (CPT 45380; principal; 2022-11-18 11:10)
DX: K62.5 Hemorrhage of anus and rectum (principal); D12.2 Benign neoplasm of ascending colon; D12.8 Benign neoplasm of rectum; K29.50 Unspecified chronic gastritis without bleeding; K21.9 Gastro-esophageal reflux disease without esophagitis; K22.70 Barrett's esophagus without dysplasia; K20.90 Esophagitis, unspecified without bleeding; K57.30 Diverticulosis of large intestine without perforation or abscess without bleeding; K64.8 Other hemorrhoids; Z88.8 Allergy status to other drugs, medicaments and biological substances
CPT/HCPCS: 45380; 43239; 88305; 88342; J2250; J2405

== ENCOUNTER → 2022-11-18 09:15 | Outpatient (BNV) | payer OTHER, SELFPAY | PROVIDERS: PCP Internal Medicine; Visit Provider Internal Medicine Gastroenterology | DX: K21.9 Gastro-esophageal reflux disease without esophagitis (principal); K30 Functional dyspepsia; K29.70 Gastritis, unspecified, without bleeding; K62.5 Hemorrhage of anus and rectum; K57.30 Diverticulosis of large intestine without perforation or abscess without bleeding; K64.8 Other hemorrhoids; D12.2 Benign neoplasm of ascending colon; D12.8 Benign neoplasm of rectum | CPT/HCPCS: 43239; 45380 ==

== ENCOUNTER 2022-11-26 11:13 | Outpatient (AMB) | payer OTHER, SELFPAY ==
--- NOTE | 2022-11-26 11:24 | MHC.OFFVIS ---
Intake Vital Signs 11/26/22 11:25 Height 5 ft 4 in Weight 184 lb 4.903 oz BMI 31.6 BP 103/51 L Blood Pressure Location Rt brachial Position Sitting Pulse 71 Intake Visit Reasons: s/p colo Intake Note: Patient presents to in office visit today in follow up of colonoscopy. CC: Patient reports doing well and denies having any new GI symptoms today. 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 Yet she has not appetite. She gave up coffee and this helped somewhat, but she stopped pepcid as it was not helping. Also, has new rectal bleeding, one episode of BRB filling the bowel red, then tapering amounts on TT and clinging to the stool with clots. May be resolved now. Pain in sides, no rectal pain. Stools soft, no diarrhea or CIC, but did have roids in . FHX biliary dikinesia in mother, Gaby [place] [facility] [place] will get HIDA. And HP stool. Try to add colonoscopy to EGD. She has failed pepcid, omeprazole, and pantoprazole for this, will try to get Acphex 20mg bid. Also labs and HP stool. ROV 3 weeks. (2) Upper abdominal pain: ?Code(s): R10.10 - Upper abdominal pain, unspecified (3) Hematochezia: ?Code(s): K92.1 - Melena ? ? ? Orders: Orders Comprehensive Met. Panel 10/18/22 R10.10 - Upper abd ominal pain, unspe cified, K92.1 - Me librado ? Complete Blood Cou nt Auto Diff 10/18/22 R10.10 - Upper abd ominal pain, unspe cified, K92.1 - Me librado ? NM hepatobiliary w pharm 10/18/22 R10.10 - Upper abd ominal pain, unspe cified, K92.1 - Me librado ? H pylori Ag StoolA 10/23/22 R10.10 - Upper abd ominal pain, unspe cified, K92.1 - Me librado ? Medications: New peg 3350-electroly damon 236-22.74-6.74 -5.86 gram (Golyt keith) ?? until feca l effluent is marlon r; do not exceed a total volume of 2 ,000 mL 240 mL PO Q10M 4,0 00 mL 0RF 1 day Z12.11 - Encounter for screening for malignant neoplas m of colon ? rabeprazole (AcipH ex) 20 mg PO BID 60 ta bs 3RF R10.10 - Upper abd ominal pain, unspe cified ? LABS: Laboratory Tests 03/13/21 10/18/22 10/18/22 19:14 10:56 10:56 WBC 10.0 Hgb 13.5 Hct 41.7 Estimated GFR > 60 Direct Bilirubin 0.2 Total Bilirubin 1.0 AST 16 ALT 15 Alkaline Phosphata se 59 Stool H. pylori Ag 10/22/22 18:00 WBC Hgb Hct Estimated GFR Direct Bilirubin Total Bilirubin AST ALT Alkaline Phosphata se Stool H. pylori Ag negative EGD/COLONOSCOPY 11/21/22 Findings: Larynx:? Obscured by the epiglottis Esophagus:?GE junction at 35 cms.? Irregular Z line - biopsied to check for Corado's. No esophagitis Stomach:?Mild gastric antral erythema. Biopsies were obtained. Grade 2 flap valve on retroflexed examination of the cardia. Duodenum:?Normal bulb and descending duodenum.? Biopsies were obtained from 3rd part of the duodenum to check for celiac sprue Intervention:?Biopsies as noted above BIOPSY Findings: Terminal Ileum: Not evaluated Cecum:? Normal Ascending Colon:??A 6-7 mm sessile polyp in the distal AC/HF - removed with the cold biopsy Transverse Colon:??Normal Descending Colon:? Normal Sigmoid Colon:??Mild diverticulosis Rectum:??Two 4-5 mm diminutive appearing polyps - removed with a cold biopsy Ano-rectum:??Moderate internal hemorrhoids Colon preparation: Excellent ? Impression and Post Procedure Diagnosis: Endoscopy Findings: ESOPHAGUS:??GE junction at 35 cms.? Irregular Z line - biopsied to check for Corado's. STOMACH: Gastritis DUODENUM: Normal - biopsied to check for celiac sprue Colonoscopy Findings: Three polyps removed Mild diverticulosis seen in the sigmoid colon Moderate hemorrhoids on retroflexed exam. Plan: Await pathology results Patient has an appointment on 11/26/22 in the GI Clinic with? Helena Wu NP. Repeat Colonoscopy interval based on path results - in 3-5 years if polyps are adenomatous and 10 years if polyps are hyperplastic. Above findings were reviewed with the patient and GERD, colon polyps and diverticulosis handouts were given in the discharge area BIOPSIES SHOWED: A.? Small bowel, biopsy:? Small intestinal mucosa within normal limits; negative for celiac disease. B.? Stomach, antrum, biopsy:? Antral-type and oxyntic mucosa with mild chronic inactive inflammation; no Helicobacter organisms seen. C.? GE junction, biopsy: - Cardiofundic-type mucosa with moderate chronic, focally active, inflammation; no intestinal metaplasia seen. - Squamous mucosa within normal limits. D.? Colon, ascending, polypectomy:? Tubular adenoma; negative for high-grade dysplasia or carcinoma. E.? Rectum, polypectomies: - Tubular adenoma; negative for high-grade dysplasia or carcinoma. - Hyperplastic mucosal polyps. HIDA SCAN 11/11/22? The calculated gallbladder ejection fraction is 57% (normal gallbladder ejection fraction is greater than 35%). NM/NM hepatobiliary w pharm IMPRESSION: Visualization of the gallbladder is evidence of a patent cystic duct and strong evidence against the diagnosis of acute cholecystitis. The common bile duct is patent. Gallbladder emptying and ejection fraction are normal. Liver function appears normal. ? TODAY'S VISIT The procedure should be repeated in 5 years. The procedure was well tolerated. The results were explained and the patient is agreeable to the follow-up interval as stated. The bowel pattern has returned to normal. Education was provided to tell any 1st degree relatives about their findings to be sure that they are screened by age 45. Educated that they will be put on a recall list when it is time for their repeat scope but should they move out of state or away from the hospital they will need to remember along with their primary to repeat the procedure in a timely fashion to avoid any adverse complications. In terms of her abdominal pain she is feeling better! She credits the AcipHex although it took about 4-6 weeks before her symptoms fully come down. She finds that Coffee a big trigger, she is now drinking green tea. However she finds this is an agreeable change for her. We review all the tests. Her gallbladder function appears to be fine she did not have H pylori and again seems that most of this was gastritis/GERD induced we will continue to monitor her. For now she is quite satisfied with her GI regimen. ROV 6 mos. PFSH Surgical History H/O dilation and curettage H/O tubal ligation Hx of section Family History Mother Breast cancer Dermatopathic lymphadenitis Father Diabetes 1.5, managed as type 2 Skin cancer Social History Household Members: Significant Other and Family Alcohol intake: current Alcohol intake frequency: holidays/special occasions only Patient Tobacco Use Status: Never used Tobacco Female Reproductive History Menstrual Age of Menarche: 13 Review of Systems Const Denies fatigue, Denies fever(s), Denies night sweats, Denies poor appetite and Denies weight loss ENT Reports Normal hearing present, Denies dental pain, Denies dysphagia, Denies hearing loss, Denies mouth pain, Denies odynophagia, Denies throat swelling, Denies tongue swelling and Reports other (Dentition adequate) Card Reports no additional complaints Resp Reports no additional complaints GI Denies abdominal pain, Denies melena, Denies bloating, Denies hematochezia, Denies constipation, Denies GI cramping, Denies dysphagia, Denies excessive flatus, Denies early satiety, Reports heartburn, Denies diarrhea, Denies nausea, Denies odynophagia, Denies vomiting and Denies hematemesis Skin/Breast Denies pruritus, Denies lesions, Denies rash and Denies jaundice Neuro Reports Normal hearing present and Denies Abnormal speech present Endo Denies fatigue Aller/Immun Denies throat swelling and Denies tongue swelling Physical Exam Vital Signs: Last Vital Signs Pulse 71 11/26/22 11:25 BP 103/51 L 11/26/22 11:25 BMI result Body Mass Index 31.6 Const General: cooperative, no acute distress, well developed and well groomed Nutritional Appearance: well nourished and obese Orientation/consciousness: oriented to person, oriented to place and oriented to time Limitations: No language barrier HEENT Head: Yes normocephalic and Yes atraumatic Eyes General: appearance normal, both eyes and all related structures Pupils: Equal, round and reactive pupils present Neck Neck: Yes normal visual inspection and Yes no lymphadenopathy Thyroid: Thyroid normal Resp Effort & Inspection: normal respiratory effort and able to speak in complete sentences Auscultation: clear to auscultation bilaterally Cardio Rate: regular rate Rhythm: regular rhythm Heart sounds: Normal, physiologic split S2 sound present Peripheral pulses: radial pulses present and posterior tibial pulses present GI Inspection: No distended and No Abdominal panniculus present Palpation (GI): Soft to palpation, nontender, no guarding, not rigid and No hepatosplenomegaly present Percussion: Yes normal to percussion Auscultation: normal bowel sounds Rectal Exam - Female: deferred Skin General skin exam: no rashes or lesions noted, turgor normal, skin not dry, no jaundice, No spider nevi and no striae Rashes: no rashes Nails: normal Neuro General: oriented to person, oriented to place and oriented to time Cranial nerves: Yes Equal, round and reactive pupils present and Yes Normal hearing present Speech: No Abnormal speech present Extrem General: Yes normal to inspection, No clubbing, No cyanosis and No edema Psych Appearance: grossly normal and well kempt Mental Status: mental status grossly normal Speech and movement: Normal speech and movement present Affect: normal affect Attitude: cooperative Thought process: Normal thought process present and not confabulating Thought content: Normal thought content present Insight: Fair insight present (Psych) Judgement: Fair judgement present (Psych) Results Reviewed Results Reviewed: Laboratory Tests 03/13/21 10/18/22 10/18/22 19:14 10:56 10:56 WBC 10.0 Hgb 13.5 Hct 41.7 Estimated GFR > 60 Direct Bilirubin 0.2 Total Bilirubin 1.0 AST 16 ALT 15 Alkaline Phosphatase 59 Stool H. pylori Ag 10/22/22 18:00 WBC Hgb Hct Estimated GFR Direct Bilirubin Total Bilirubin AST ALT Alkaline Phosphatase Stool H. pylori Ag negative EGD/COLONOSCOPY 11/21/22 Findings: Larynx:? Obscured by the epiglottis Esophagus:?GE junction at 35 cms.? Irregular Z line - biopsied to check for Corado's. No esophagitis Stomach:?Mild gastric antral erythema. Biopsies were obtained. Grade 2 flap valve on retroflexed examination of the cardia. Duodenum:?Normal bulb and descending duodenum.? Biopsies were obtained from 3rd part of the duodenum to check for celiac sprue Intervention:?Biopsies as noted above BIOPSY Findings: Terminal Ileum: Not evaluated Cecum:? Normal Ascending Colon:??A 6-7 mm sessile polyp in the distal AC/HF - removed with the cold biopsy Transverse Colon:??Normal Descending Colon:? Normal Sigmoid Colon:??Mild diverticulosis Rectum:??Two 4-5 mm diminutive appearing polyps - removed with a cold biopsy Ano-rectum:??Moderate internal hemorrhoids Colon preparation: Excellent ? Impression and Post Procedure Diagnosis: Endoscopy Findings: ESOPHAGUS:??GE junction at 35 cms.? Irregular Z line - biopsied to check for Corado's. STOMACH: Gastritis DUODENUM: Normal - biopsied to check for celiac sprue Colonoscopy Findings: Three polyps removed Mild diverticulosis seen in the sigmoid colon Moderate hemorrhoids on retroflexed exam. Plan: Await pathology results Patient has an appointment on 11/26/22 in the GI Clinic with? Helena Wu NP. Repeat Colonoscopy interval based on path results - in 3-5 years if polyps are adenomatous and 10 years if polyps are hyperplastic. Above findings were reviewed with the patient and GERD, colon polyps and diverticulosis handouts were given in the discharge area BIOPSIES SHOWED: A.? Small bowel, biopsy:? Small intestinal mucosa within normal limits; negative for celiac disease. B.? Stomach, antrum, biopsy:? Antral-type and oxyntic mucosa with mild chronic inactive inflammation; no Helicobacter organisms seen. C.? GE junction, biopsy: - Cardiofundic-type mucosa with moderate chronic, focally active, inflammation; no intestinal metaplasia seen. - Squamous mucosa within normal limits. D.? Colon, ascending, polypectomy:? Tubular adenoma; negative for high-grade dysplasia or carcinoma. E.? Rectum, polypectomies: - Tubular adenoma; negative for high-grade dysplasia or carcinoma. - Hyperplastic mucosal polyps. HIDA SCAN 11/11/22? The calculated gallbladder ejection fraction is 57% (normal gallbladder ejection fraction is greater than 35%). NM/NM hepatobiliary w pharm IMPRESSION: Visualization of the gallbladder is evidence of a patent cystic duct and strong evidence against the diagnosis of acute cholecystitis. The common bile duct is patent. Gallbladder emptying and ejection fraction are normal. Liver function appears normal. ? Assessment & Plan Assessment & Plan (1) Erosive gastritis: Code(s): K29.60 - Other gastritis without bleeding Plan: The procedure should be repeated in 5 years. The procedure was well tolerated. The results were explained and the patient is agreeable to the follow-up interval as stated. The bowel pattern has returned to normal. Education was provided to tell any 1st degree relatives about their findings to be sure that they are screened by age 45. Educated that they will be put on a recall list when it is time for their repeat scope but should they move out of state or away from the hospital they will need to remember along with their primary to repeat the procedure in a timely fashion to avoid any adverse complications. In terms of her abdominal pain she is feeling better! She credits the AcipHex although it took about 4-6 weeks before her symptoms fully come down. She finds that Coffee a big trigger, she is now drinking green tea. However she finds this is an agreeable change for her. We review all the tests. Her gallbladder function appears to be fine she did not have H pylori and again seems that most of this was gastritis/GERD induced we will continue to monitor her. For now she is quite satisfied with her GI regimen. ROV 6 mos. (2) Tubular adenoma of colon: Comment: 2022 scope= TA repeat in 5 years Code(s): D12.6 - Benign neoplasm of colon, unspecified (3) GERD (gastroesophageal reflux disease): Code(s): K21.9 - Gastro-esophageal reflux disease without esophagitis (4) Upper abdominal pain: Code(s): R10.10 - Upper abdominal pain, unspecified Coding Level of Care Code Est Pt Level 4 (50382) Diagnoses Erosive gastritis K29.60 Tubular adenoma of colon D12.6 GERD (gastroesophageal reflux disease) K21.9 Upper abdominal pain R10.10
[2022-11-26 11:25] VITALS: BP 103/51; PULSE 71; BMI 31.6
== END 2022-11-26 11:56 | disposition home or self-care (01) ==
PROVIDERS: PCP Internal Medicine; Visit Provider Nurse Practitioner
DX: K29.60 Other gastritis without bleeding (principal); D12.6 Benign neoplasm of colon, unspecified; K21.9 Gastro-esophageal reflux disease without esophagitis; R10.10 Upper abdominal pain, unspecified
CPT/HCPCS: 99214

== ENCOUNTER → 2022-11-26 11:13 | Outpatient (BNVA) | payer OTHER, SELFPAY | PROVIDERS: PCP Internal Medicine; Visit Provider Nurse Practitioner ==

== ENCOUNTER 2023-01-31 14:27 | Outpatient (AMB) | payer OTHER, SELFPAY ==
[2023-01-31 14:37] VITALS: BP 104/68; BMI 32.8
--- NOTE | 2023-01-31 14:37 | MHC.OFFVIS ---
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 She works here at the [employer]. 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 She is also going to physical therapy for some lower back issues. She has no worries at all about STIs she does get occasional yeast infections and she can recognize the symptoms and Diflucan works best for her and she would like refills on the Diflucan and miconazole as well just to have for if she needs it but she declines testing is not necessary today. She had a negative normal Pap smear last year in 2021 and has no history of abnormal so she does need a Pap this year either. She gets regular menses with no issues whatsoever she sees a primary care provider in [facility] and she has regular mammograms. She can not remember for mom had bracket testing or not her mom did have breast cancer about 14 years ago. She has no other health concerns. [facility] Surgical History (Updated 01/31/23 @ 14:39 by SERENA Werner) Hx of colonoscopy Hx of endoscopy H/O tubal ligation H/O dilation and curettage Hx of section Family History Mother Breast cancer Dermatopathic lymphadenitis Father Diabetes 1.5, managed as type 2 Skin cancer Social History Household Members: Significant Other and Family Alcohol intake: current Alcohol intake frequency: holidays/special occasions only Patient Tobacco Use Status: Never used Tobacco Female Reproductive History Menstrual Age of Menarche: 13 Duration of menses: 3-5 days Date of last menstrual period: 01/07/23 control method: other (tubal ligation) Total pregnancies: 5 Full term: 3 Number of Living Children: 3 Ab spontaneous: 2 Date of last pap smear: 01/29/22 (negative) History of abnormal pap smear: No Date of Mammogram: 03/15/22 Physical Exam Vital Signs: Last Vital Signs BP 104/68 01/31/23 14:37 BMI result Body Mass Index 32.8 Const General: healthy appearing, comfortable, no acute distress, well developed and alert Nutritional Appearance: average body habitus Orientation/consciousness: patient oriented x3 Limitations: no limitations HEENT Head: Yes normocephalic Neck Neck: Yes normal visual inspection Chest Chest palpation & inspection: normal inspection of the chest Breast/axilla inspection: normal inspection of the breasts and normal inspection of the axillae Breast/axilla palpation: normal palpation of the breasts and normal palpation of the axillae Resp Effort & Inspection: normal respiratory effort GI Inspection: Yes normal to inspection, No Abdominal wall edema and No distended Palpation (GI): Soft to palpation and nontender General: Yes bladder normal to palpation External Female Exam: normal external appearance and normal appearance of the urethra Speculum Exam - Vagina: normal appearance of the vagina, normal palpation and normal vaginal discharge Speculum Exam - Cervix: normal appearance of the cervix, normal palpation and nontender Bimanual exam- vagina & uterus: normal bimanual exam, normal palpation, uterine size normal, bladder normal to palpation, consistency normal, normal palpation, uterine mobility normal, uterine shape normal, No Cervical tenderness present, non-tender and no cervical motion tenderness Bimanual Exam- Adnexa, other: normal adnexae, no masses, normal and No adnexal tenderness Neuro General: patient oriented x3 Assessment & Plan Assessment & Plan (1) Well woman exam with routine gynecological exam: Code(s): Z01.419 - Encounter for gynecological examination (general) (routine) without abnormal findings (2) Cervical cancer screening: Comment: 01/28/2022 Pap is negative with negative HPV. Code(s): Z12.4 - Encounter for screening for malignant neoplasm of cervix (3) Yeast infection involving the vagina and surrounding area: Comment: Occasionally recur; patient has no current symptoms -desires p.r.n. prescriptions for when she needs them; sent. Code(s): B37.31 - Acute candidiasis of vulva and vagina Plan -----Discussed in this visit the following: healthy balanced diet, regular and consistent exercise, getting recommended health screens, doing the best she can for her particular health concerns, kegel exercises, pap smear screening and followup recommendations, mammography screening and SBE, normal changes in cycles in her life stage--- . Patient is aware of symptoms of yeast infection when she has them and has no symptoms currently and declines testing. There is no need for Pap smear this year either reviewed the normal screening schedule for Pap smears. She is getting her yearly mammograms there ordered via her primary care provider. She desired p.r.n. prescriptions for Diflucan and miconazole which I have sent to her pharmacy downstairs. She is continuing to work on trying to do self-care with being active and her horse riding once a week and physical therapy to deal with lower back issues. We will see her in 1 year. She may ask her mother if her mom had braca testing or not and follow-up accordingly Medications: Refilled fluconazole may repeat second dose 72 hrs after first dose if symptoms persist 150 mg PO Q3D 2 doses 2 tabs 4RF miconazole nitrate 2% (Miconazole-7) 1 appful vaginal BEDTIME 7 days 45 grams 3RF Coding Level of Care Code Est Pt Prev Care 40-64y(99248) Diagnoses Well woman exam with routine gynecological exam Z01.419 Cervical cancer screening Z12.4 Yeast infection involving the vagina and surrounding area B37.31
== END 2023-01-31 15:31 | disposition home or self-care (01) ==
PROVIDERS: Visit Provider Advanced Practice Midwife
DX: Z01.419 Encounter for gynecological examination (general) (routine) without abnormal findings (principal); Z12.4 Encounter for screening for malignant neoplasm of cervix; B37.31 Acute candidiasis of vulva and vagina
CPT/HCPCS: 99396

== ENCOUNTER → 2023-01-31 14:27 | Outpatient (BNVA) | payer OTHER, SELFPAY | PROVIDERS: Visit Provider Advanced Practice Midwife ==

== ENCOUNTER 2023-03-17 15:42 | Outpatient (REF) | payer OTHER, SELFPAY | END 2023-03-17 15:43 | disposition home or self-care (01) | LOC: HO.MAMMO 15:42 | PROVIDERS: PCP Internal Medicine; Visit Provider Internal Medicine | DX: Z12.31 Encounter for screening mammogram for malignant neoplasm of breast (principal) | CPT/HCPCS: 77063; 77067 ==

== ENCOUNTER → 2023-03-17 15:45 | Outpatient (BNV) | payer OTHER, SELFPAY | PROVIDERS: PCP Internal Medicine; Visit Provider Radiology Diagnostic Radiology | DX: Z12.31 Encounter for screening mammogram for malignant neoplasm of breast (principal) | CPT/HCPCS: 77063; 77067 ==

== ENCOUNTER 2023-04-23 07:00 | Outpatient (RCR) | payer OTHER, SELFPAY | END 2023-06-05 15:04 | disposition home or self-care (01) | LOC: HO.PT 07:00 | PROVIDERS: PCP Internal Medicine; Visit Provider Internal Medicine | DX: M53.3 Sacrococcygeal disorders, not elsewhere classified (principal) | CPT/HCPCS: 97033; 97110; 97140; 97162; 97530 ==

== ENCOUNTER 2023-05-27 11:27 | Outpatient (AMB) | payer OTHER, SELFPAY ==
--- NOTE | 2023-05-27 11:30 | MHC.OFFVIS ---
Intake Vital Signs 05/27/23 11:50 Height 5 ft 4 in Weight 200 lb 9.93 oz BMI 34.4 BP 121/76 Blood Pressure Location Rt brachial Position Sitting Pulse 76 Intake Visit Reasons: 6 mnht follow up Intake Note: Patient presents to in office visit today in follow up of GERD. CC: Patient reports doing well and denies having any new GI symptoms today. 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 The procedure was well tolerated. The results were explained and the patient is agreeable to the follow-up interval as stated. The bowel pattern has returned to normal. Education was provided to tell any 1st degree relatives about their findings to be sure that they are screened by age 45. Educated that they will be put on a recall list when it is time for their repeat scope but should they move out of state or away from the hospital they will need to remember along with their primary to repeat the procedure in a timely fashion to avoid any adverse complications. In terms of her abdominal pain she is feeling better! She credits the AcipHex although it took about 4-6 weeks before her symptoms fully come down. She finds that Coffee a big trigger, she is now drinking green tea. However she finds this is an agreeable change for her. We review all the tests. Her gallbladder function appears to be fine she did not have H pylori and again seems that most of this was gastritis/GERD induced we will continue to monitor her. For now she is quite satisfied with her GI regimen. ROV 6 mos. (2) Tubular adenoma of colon: Comment: 2022 scope= TA repeat in 5 years Code(s): D12.6 - Benign neoplasm of colon, unspecified (3) GERD (gastroesophageal reflux disease): Code(s): K21.9 - Gastro-esophageal reflux disease without esophagitis (4) Upper abdominal pain: Code(s): R10.10 - Upper abdominal pain, unspecified ? TODAY'S VISIT ROV 1 year. She has weaned off of the aciphex and is doing well! She is uncertain why all her symptoms have resolved but we are happy about it. I offer her whether she wants to just follow with her primary care provider going forward but she opts to stay with our service for 1 year follow-ups as she is fearful that the symptoms may return. [facility] Surgical History Hx of colonoscopy Hx of endoscopy H/O tubal ligation H/O dilation and curettage Hx of section Family History Mother Breast cancer Dermatopathic lymphadenitis Father Diabetes 1.5, managed as type 2 Skin cancer Social History Household Members: Significant Other and Family Alcohol intake: current Alcohol intake frequency: holidays/special occasions only Patient Tobacco Use Status: Never used Tobacco Female Reproductive History Menstrual Age of Menarche: 13 Review of Systems Const Denies fatigue, Denies fever(s), Denies night sweats, Denies poor appetite and Denies weight loss ENT Reports Normal hearing present, Denies dental pain, Denies dysphagia, Denies hearing loss, Denies mouth pain, Denies odynophagia, Denies throat swelling, Denies tongue swelling and Reports other (Dentition adequate) Card Reports no additional complaints Resp Reports no additional complaints GI Details: Denies abdominal pain, Denies melena, Denies bloating, Denies hematochezia, Denies constipation, Denies GI cramping, Denies dysphagia, Denies excessive flatus, Denies early satiety, Denies heartburn, Denies diarrhea, Denies nausea, Denies odynophagia, Denies vomiting and Denies hematemesis Skin/Breast Denies pruritus, Denies lesions, Denies rash and Denies jaundice Neuro Reports Normal hearing present and Denies Abnormal speech present Endo Denies fatigue Aller/Immun Denies throat swelling and Denies tongue swelling Physical Exam Vital Signs: Last Vital Signs Pulse 76 05/27/23 11:50 BP 121/76 05/27/23 11:50 BMI result Body Mass Index 34.4 Const General: cooperative, no acute distress, well developed and well groomed Nutritional Appearance: well nourished and obese Orientation/consciousness: oriented to person, oriented to place and oriented to time Limitations: No language barrier HEENT Head: Yes normocephalic and Yes atraumatic Eyes General: appearance normal, both eyes and all related structures Pupils: Equal, round and reactive pupils present Neck Neck: Yes normal visual inspection and Yes no lymphadenopathy Thyroid: Thyroid normal Resp Effort & Inspection: normal respiratory effort and able to speak in complete sentences Auscultation: clear to auscultation bilaterally Cardio Rate: regular rate Rhythm: regular rhythm Heart sounds: Normal, physiologic split S2 sound present Peripheral pulses: radial pulses present and posterior tibial pulses present GI Inspection: No distended, Yes Abdominal panniculus present and Yes obesity Palpation (GI): Soft to palpation, nontender, no guarding, not rigid and No hepatosplenomegaly present Percussion: Yes normal to percussion Auscultation: normal bowel sounds Rectal Exam - Female: deferred Skin General skin exam: no rashes or lesions noted, turgor normal, skin not dry, no jaundice, No spider nevi and no striae Rashes: no rashes Nails: normal Neuro General: oriented to person, oriented to place and oriented to time Cranial nerves: Yes Equal, round and reactive pupils present and Yes Normal hearing present Speech: No Abnormal speech present Extrem General: Yes normal to inspection, No clubbing, No cyanosis and No edema Psych Appearance: grossly normal and well kempt Mental Status: mental status grossly normal Speech and movement: Normal speech and movement present Affect: normal affect Attitude: cooperative Thought process: Normal thought process present and not confabulating Thought content: Normal thought content present Insight: Fair insight present (Psych) Judgement: Fair judgement present (Psych) Assessment & Plan Assessment & Plan (1) GERD (gastroesophageal reflux disease): Code(s): K21.9 - Gastro-esophageal reflux disease without esophagitis (2) Upper abdominal pain: Code(s): R10.10 - Upper abdominal pain, unspecified (3) Tubular adenoma of colon: Comment: 2022 scope= TA repeat in 5 years Code(s): D12.6 - Benign neoplasm of colon, unspecified (4) Erosive gastritis: Code(s): K29.60 - Other gastritis without bleeding Plan ROV 1 year. She has weaned off of the aciphex and is doing well! She is uncertain why all her symptoms have resolved but we are happy about it. I offer her whether she wants to just follow with her primary care provider going forward but she opts to stay with our service for 1 year follow-ups as she is fearful that the symptoms may return. Coding Level of Care Code Est Pt Level 3 (56526) Diagnoses GERD (gastroesophageal reflux disease) K21.9 Upper abdominal pain R10.10 Tubular adenoma of colon D12.6 Erosive gastritis K29.60
[2023-05-27 11:50] VITALS: BP 121/76; PULSE 76; BMI 34.4
== END 2023-05-27 13:26 | disposition home or self-care (01) ==
PROVIDERS: PCP Internal Medicine; Visit Provider Nurse Practitioner
DX: K21.9 Gastro-esophageal reflux disease without esophagitis (principal); R10.10 Upper abdominal pain, unspecified; D12.6 Benign neoplasm of colon, unspecified; K29.60 Other gastritis without bleeding
CPT/HCPCS: 99213

== ENCOUNTER → 2023-05-27 11:27 | Outpatient (BNVA) | payer OTHER, SELFPAY | PROVIDERS: PCP Internal Medicine; Visit Provider Nurse Practitioner ==

== ENCOUNTER 2023-06-10 08:41 | Outpatient (REF) | payer OTHER, SELFPAY ==
[2023-06-10 08:56] LABS: IDNOW Serial# 08D9AD1C
[2023-06-10 08:57] LABS: Strep A Nucleic Acid Positive (Negative)
== END 2023-06-10 08:42 | disposition home or self-care (01) ==
LOC: HO.LNP 08:41
PROVIDERS: Visit Provider Pathology Anatomic Pathology & Clinical Pathology
DX: J02.9 Acute pharyngitis, unspecified (principal)
CPT/HCPCS: 87651

== ENCOUNTER 2023-12-04 06:51 | Outpatient (REF) | payer OTHER, SELFPAY ==
[2023-12-04 06:59] LABS: MANUAL DIFF FLAG NO
[2023-12-04 07:46] LABS: Basophils Percent Auto 0.5 % (0-2); Eosinophils Absolute Auto 0.1 X10*3/uL (0.0-0.4); Eosinophils Percent Auto 1.2 % (0-4); Hematocrit 38.8 % (37.0-47.0); Hemoglobin 13.1 g/dl (12.0-16.0); Imm Gran Abs Auto 0.02 X10*3/uL (0.00-0.03); Imm Gran Pct Auto 0.2 % (0.0-0.4); Lymphocytes Absolute Auto 2.4 X10*3/uL (1.2-4.9); Lymphocytes Percent Auto 29.2 % (20-40); Mean Corpuscular HGB Conc 33.8 g/dl (31.0-35.0); Mean Corpuscular Hemoglobin 29.4 pg (27.0-33.0); Mean Platelet Volume 10.5 fL (9.4-12.3); Monocytes Absolute Auto 0.8 X10*3/uL (0.1-1.2); Monocytes Percent Auto 10.1 % (2-11); Neutrophils Absolute Auto 4.8 x10*3/uL (2.0-8.3); Neutrophils Percent Auto 58.8 % (45-73); Platelet Count 284 X10*3/uL (160-400); Red Blood Count 4.46 X10*6/uL (4.20-5.50); Red Cell Distribution Width 13.2 % (11.0-16.0); White Blood Count 8.2 X10*3/uL (4.8-10.8)
[2023-12-04 07:49] LABS: Appearance Urine Clear; Color Urine Yellow; Glucose Urine UA Negative (Negative); Leukocyte Esterase Urine Negative (Negative); Nitrite Urine Negative (Negative); PH 6.5 (5.0-9.0); Urine Blood Negative (Negative); Urine Ketones Negative (Negative); Urine Protein Negative (Neg-Trace)
[2023-12-04 08:02] LABS: Bacteria Urine None Seen (None Seen); Hyaline Casts Urine 0-2 /LPF (0-2); RBC Urine 0-2 /HPF (0-2); Squamous Epithelial Cell Urine 0-2 /HPF (0-2); WBC Urine 0-5 /HPF (0-5)
[2023-12-04 08:36] LABS: Anion Gap 12 (12-20); Blood Urea Nitrogen 18 mg/dL (9-16); Carbon Dioxide 22 mmol/L (22-29); Chloride 108 mmol/L (96-108); Cholesterol 164 mg/dL (<200); Estimated Glomerular Filt Rate > 60; Glucose Fasting 104 mg/dL (60-99); HDL Cholesterol 43 mg/dL (>40); LDL Cholesterol Calculated 104 mg/dL (<100); Sodium 138 mmol/L (135-145); Triglycerides 86 mg/dL (<150)
[2023-12-04 08:50] LABS: TSH reflex Free T4 0.54 uIU/mL (0.32-4.0)
== END 2023-12-04 06:52 | disposition home or self-care (01) ==
LOC: HO.LAB 06:51
PROVIDERS: PCP Internal Medicine; Visit Provider Internal Medicine
DX: Z00.01 Encounter for general adult medical examination with abnormal findings (principal); E66.09 Other obesity due to excess calories; Z13.1 Encounter for screening for diabetes mellitus; Z13.29 Encounter for screening for other suspected endocrine disorder
CPT/HCPCS: 36415; 80051; 80061; 81001; 82565; 82947; 84443; 84520; 85025

== ENCOUNTER 2023-12-23 11:02 | Outpatient (REF) | payer OTHER, SELFPAY | END 2023-12-23 11:03 | disposition home or self-care (01) | LOC: HO.SH 11:02 | PROVIDERS: Visit Provider Internal Medicine | DX: Z01.118 Encounter for examination of ears and hearing with other abnormal findings (principal); H93.293 Other abnormal auditory perceptions, bilateral | CPT/HCPCS: 92552; 92556 ==

== ENCOUNTER 2024-01-08 13:56 | Outpatient (REF) | payer OTHER, SELFPAY ==
[2024-01-08 13:16] VITALS: PULSE 99; RESP 16; O2SAT 95
--- NOTE | 2024-01-08 14:00 | PFT_ITS ---
Flows: FEV1: 119 % of predicted at 3.45 L FVC: 120 % of predicted at 4.29 L FEV1/FVC: 80 % Bronchodilator response: Bronchodilator testing not performed Volumes: Total lung capacity: 111 % of predicted at 5.81 L Residual volume: 109 % of predicted at 1.51 L Slow vital capacity: 112 % of predicted at 4.29 L Expiratory reserve volume: 52 % of predicted at 0.59 L Diffusion capacity: Normal Impression: No obstructive or restrictive ventilatory defect. Bronchodilator testing not performed. Essentially normal pulmonary function test. MTDD
== END 2024-01-08 13:57 | disposition home or self-care (01) ==
LOC: HO.RESP 13:56
PROVIDERS: PCP Internal Medicine; Visit Provider Internal Medicine
DX: R06.2 Wheezing (principal)
CPT/HCPCS: 94010; 94640; 94727; 94729

== ENCOUNTER → 2024-01-08 14:00 | Outpatient (BNV) | payer OTHER, SELFPAY | PROVIDERS: PCP Internal Medicine; Visit Provider Internal Medicine Pulmonary Disease | DX: R06.2 Wheezing (principal) | CPT/HCPCS: 94060; 94727; 94729 ==

== ENCOUNTER 2024-02-02 10:50 | Outpatient (REF) | payer OTHER, SELFPAY ==
[2024-02-02 11:11] LABS: COVID-19 Test Negative (Negative); IDNOW Serial# 152EDE1D
== END 2024-02-02 10:51 | disposition home or self-care (01) ==
LOC: HO.LNP 10:50
PROVIDERS: Visit Provider Internal Medicine
DX: J02.9 Acute pharyngitis, unspecified (principal); R05.9 Cough, unspecified
CPT/HCPCS: 87635

== ENCOUNTER 2024-04-15 07:57 | Outpatient (REF) | payer OTHER, SELFPAY ==
--- NOTE | 2024-04-15 08:00 | PFT_ITS ---
Methacholine challenge: Patient had greater than 20% decrease in FEV1 from baseline with bronchoprovocation testing. Impression: Positive methacholine challenge test. MTDD
== END 2024-04-15 07:58 | disposition home or self-care (01) ==
LOC: HO.RESP 07:57
PROVIDERS: PCP Internal Medicine; Visit Provider Internal Medicine
DX: R06.2 Wheezing (principal)
CPT/HCPCS: 94010; 94640; 94727; 94729

== ENCOUNTER → 2024-04-15 08:00 | Outpatient (BNV) | payer OTHER, SELFPAY | PROVIDERS: PCP Internal Medicine; Visit Provider Internal Medicine Pulmonary Disease | DX: R06.2 Wheezing (principal) | CPT/HCPCS: 94070 ==

== ENCOUNTER 2024-10-27 08:34 | Emergency (ER) | payer OTHER, SELFPAY ==
[2024-10-27 08:43] VITALS: BP 130/77; PULSE 75; RESP 14; TEMP 37; O2SAT 96; BMI 34.9
--- NOTE | 2024-10-27 08:44 | ED_ITS ---
HPI - General Adult General Chief complaint: Eye Problems Stated complaint: sti in left eye, sinuses getting bad Time Seen by Provider: 10/27/24 08:43 Source: patient Mode of arrival: ambulatory Limitations: no limitations History of Present Illness ED Provider: Mary Whitman PA-C HPI narrative: Patient is a 44 year old assigned female at with a history of GERD and ocular migraines presenting to the emergency department today with left eye blurry vision, left eye pain, and left sided sinus pain. Patient states that she has had a stye over the last few days and saw her PCP who gave her medicated eye drops but recommended she see an patient transition specialist of which she has an appointment tomorrow (10/28/2024) however, she continues to have these symptoms and was concerned she should be seen sooner. Patient denies any dizziness, lightheadedness, abdominal pain, nausea, vomiting, fever, chills, double vision, loss of vision, chest pain, difficulty breathing, shortness of breath, back pain, night sweats, pain with urination, increased urinary frequency, increased urinary urgency, blood in her urine or stool, syncope or a near syncopal episode, recent trauma or falls, bowel incontinence, bladder incontinence, or any other complaints at this time. Relieving factors: none Exacerbating factors: none Associated symptoms: denies other symptoms Treatments prior to arrival: other (Antibiotic eye drops) Related Data Home Medications ?Medication ?Instructions ?Recorded ?Confirmed ibuprofen 800 mg tablet 800 mg PO Q6H 05/27/23 Previous Rx's ?Medication ?Instructions ?Recorded rabeprazole 20 mg tablet,delayed 20 mg PO DAILY #90 ta bs 03/02/24 release clindamycin HCl 300 mg capsule 300 mg PO TID 7 days #2 1 caps 10/27/24 (Cleocin HCl) erythromycin 5 mg/gram (0.5 %) eye 0.5 inch ophthalmic (eye) Q4H #3.5 10/27/24 ointment grams Allergies Allergy/AdvReac Type Severity Reaction Status Date / Time codeine AdvReac Mild Vomiting Verified 10/27/24 08:44 Review of Systems Constitutional: Constitutional: Reports no additional constitutional complaints, Denies chills, Denies fever(s) and Denies night sweats Eyes: Eyes: Reports no additional eye complaints, Reports blurry vision (left eye only), Denies change in vision, Denies diplopia, Denies eye discharge, Denies loss of vision and Reports eye pain (left eye) ENT: Denies dizziness Comments: left sided sinus pain Cardiovascular: Cardiovascular: Reports no additional cardiovascular comp laints, Denies chest pain, Denies lightheadedness, Denies Loss of Consciousness and Denies dyspnea Respiratory: Respiratory: Reports no additional respiratory complaints and Denies dyspnea Gastrointestinal: Gastrointestinal: Reports no additional gastrointestinal complaints, Denies abdominal pain, Denies melena, Denies hematochezia, Denies change in bowel habits and Denies change in stool character Genitourinary: Genitourinary: Denies hematuria, Denies urinary frequency, Denies dysuria, Denies urinary incontinence, Denies urinary hesitancy and Denies urinary urgency Musculoskeletal: Musculoskeletal: Reports no additional musculoskeletal complaints, Denies numbness and Denies tingling Neurologic: Denies dizziness, Denies loss of vision, Denies numbness and Denies tingling Psychiatric: Psychiatric: Reports no additional psychiatric complaints Endocrine: Endocrine: Reports no additional endocrine complaints Hematologic/Lymphatic: Hematologic/Lymphatic: Reports no additional hemato logic/lymphatic complaints Allergic/Immunologic: Allergic/Immunologic: Reports no additional allergic/immunologic complaints PMFSH Past Medical History Attestation statement: The following information was validated with the patient. Source: old records reviewed and nursing notes reviewed Surgical History Hx of colonoscopy Hx of endoscopy H/O tubal ligation H/O dilation and curettage Hx of section Family History Family History Mother Breast cancer Dermatopathic lymphadenitis Father Diabetes 1.5, managed as type 2 Skin cancer Social History Social History Household Members: Significant Other and Family Alcohol intake: current Alcohol intake frequency: holidays/special occasions only Patient Tobacco Use Status: Never used Tobacco Physical Exam ED Const General: cooperative, no acute distress, alert and awake Nutritional Appearance: well nourished Orientation/consciousness: patient oriented x3 HENMT Head: Yes normal to inspection and Yes atraumatic Ears: hearing grossly normal bilaterally and external ears normal General nose exam: Normal external nose present, no nasal discharge noted and no epistaxis Face and sinus: Yes normal facial exam, No abrasion and No laceration Mouth: Normal oral and palatal mucosa present, no drooling and no muffled voice Eyes Other: trace erythema to the superior left eye lid with trace swelling Conjunctivae: conjunctivae normal Pupils: Equal, round and reactive pupils present EOM: EOMs intact bilaterally Neck Neck: Yes normal visual inspection, Yes full ROM and Yes no lymphadenopathy Resp Effort & Inspection: normal respiratory effort and able to speak in complete sentences Neuro General: patient oriented x3, moves all extremities and CN's II-XI intact bilaterally Cranial nerves: Yes Equal, round and reactive pupils present Cognition (Neuro): normal cognition Extrem General: Yes normal to inspection, Yes full ROM and Yes capillary refill normal Psych Appearance: grossly normal Mental Status: mental status grossly normal Affect: normal affect Attitude: cooperative Thought process: Normal thought process present Thought content: Normal thought content present Insight: Good insight present (Psych) Medical Decision Making Medical Decision Making MDM Narrative: Patient is a 44 year old assigned female at with a history of GERD and ocular migraines presenting to the emergency department today with left eye blurry vision, left eye pain, and left sided sinus pain. Patient's physical exam was as noted in the physical exam portion of this note. Patient's clinical presentation is possibly pre-septal cellulitis vs. ongoing stye vs. an ocular migraine. Given patient's presentation - will treat with PO Clindamycin + topical erythromycin and have her keep her appointment with Dr. Fernandez tomorrow (10/28/2024) with strict return precautions. I explained my physical exam findings to the patient. I answered all questions asked by the patient. I stressed the importance of the patient taking her medication as directed (either prescribed or as the over the counter packaging recommends). I stressed the importance of the patient following up with her primary care provider and the patient transition specialist as scheduled. I stressed the importance of the patient returning to the emergency department immediately if her symptoms were to worsen or if she were to develop any dizziness, shortness of breath, difficulty breathing, chest pain, blurry vision, loss of vision, nausea, vomiting, abdominal pain, fever, chills, back pain, or any other complaints. Patient verbalized agreement and understanding with this treatment plan and discharge. Differential Diagnosis Differential Diagnoses: The differential diagnosis associated with the presentation includes Ocular migraine Stye Conjunctivitis Pre-septal cellulitis Admission/Observation Consideration of admission/observation: Escalation of care including admission/observation considered Patient would have been admitted to the hospital had her clinical presentation warranted hospital admission. Prescription Management I considered prescription management with: Antibiotic (patient prescribed antibiotic ointment and oral antibiotics) Discharge Plan Discharge Clinical Impression: Stye, Preseptal cellulitis Patient Disposition: Home, Self-Care Instructions: Stye (ED), Periorbital Cellulitis (ED) Additional Instructions: Follow up with your primary care provider and the patient transition specialist as scheduled. Return to the emergency department immediately if your symptoms worsen or if you develop any numbness, tingling, dizziness, shortness of breath, difficulty breathing, chest pain, blurry vision, loss of vision, nausea, vomiting, abdominal pain, fever, chills, back pain, or any other complaints. If you do not have a primary care provider - call any of the below numbers to establish and follow up with a primary care provider. [facility] Primary Care ([place]) [phone] [place] [address], [address] [facility] Primary Care ([address] [place]) [phone] [place] [address], [address] [facility], [address] [facility] Primary Care ([address] [place]) [phone] [place] [address], [address] [facility], [address] [facility] Primary Care ([place]) [phone] [place] [address], [address] [facility], [address] [facility] Family Medicine [phone] [address] [facility], [address] Please see the information below about our Patient Portal. If you are not yet enrolled in the [facility] Patient Portal, you will receive an enrollment email invitation following your visit to any [facility] care setting. You may also self-enroll in the Patient Portal by visiting our website: [email or web address] The following information is required to access the Patient Portal: - Your [facility] Medical Record Number - Your personal home email address (must match what is in your electronic med ical record, Registration staff can assist with this) - Name - Date of Capabilities of the Patient Portal: - Message some providers - View upcoming appointments - Access your health summary, medical history, and visit history - View current conditions and allergies - View procedure and lab results - View your medications, including guidelines, side effects, and precautions - Complete pre-appointment questionnaires requested by your provider - Ready summary reports of your office visits and procedures To access the Patient Portal Mobile Mary Beth, follow these directions: - Search [employer] Information in the [employer] Store or [employer] Store - Download the Mary Beth - Search for [facility] - Enter your login/password Prescriptions: New erythromycin 5 mg/gram (0.5 %) ointment 0.5 inch ophthalmic (eye) Q4H Qty: 3.5 0RF clindamycin HCl [Cleocin HCl] 300 mg capsule 300 mg PO TID 7 Days Qty: 21 0RF No Action rabeprazole 20 mg tablet,delayed release (DR/EC) 20 mg PO DAILY Qty: 90 1RF ibuprofen 800 mg tablet 800 mg PO Q6H Print Language: Turkmen
[2024-10-27 08:51] VITALS: BP 130/77; PULSE 75; RESP 14; TEMP 37; O2SAT 97
--- NOTE | 2024-10-27 08:56 | PC.NURSE ---
Patient A&O x 3. Patient presents to ED with left eye issues. Patient recently treated for stye in left eye. Denies pain at the moment but is intermittent. Vision changes noted, blurry light sensitive, and sinus pain rated 2/10. Patient concerned she could have a possible infection. Appt to see eye doctor tomorrow. Eyes PERRLA. Denies dizziness, SOB, and lightheadedness. VSS and up to date. Provider in to see patient. Plan of care on going
[2024-10-27 09:08] VITALS: BP 130/77; PULSE 75; RESP 14; TEMP 37; O2SAT 97
--- OUTSIDE RECORDS SUMMARY | 2024-10-27 09:28 | XMS_ITS | Encounter Summary ---
Author Organization [facility] Address [address] [place] [address] Phone Care Team Providers Care Shipping Assistant Name Role Phone Kimberly Johns Primary Care Provider [phone] Encounter Details Date Type Department Care Team (Late st Contact Info) Description 09/19/2017 Transcribe Orders [facility] [address] [place] [address] Kimberly Johns PA [address] [place] [address] [email or web address] Social History Tobacco Use Types Packs/Day Years Used Date Smoking Tobacco: Never Assessed Comments Unknown Sex and Gender Information Value Date Recorded Sex Assigned at Female 09/19/2017 11:08 AM EDT Legal Sex Female 11:05 AM EDT Gender Identity Female 09/19/2017 11:08 AM EDT Sexual Orientation Not on file documented as of this encounter Plan of Treatment Not on file documented as of this encounter Visit Diagnoses Not on filedocumented in this encounter Care Teams Shipping Assistant Relationship Specialty Start Date End Date Kimberly Johns PA [email or web address] PCP - General Unknown Provider Specialty 09/19/17 documented as of this encounter Additional Source Comments The information contained in this document represents components of the legal health record. It is not the complete legal health record.[facility]
--- OUTSIDE RECORDS SUMMARY | 2024-10-27 09:29 | XMS_ITS | Patient Health Record ---
Author Organization [facility] Chrissy Arevalo Address [address] [place] [address] Care Team Providers Care Cage Fighter Name Role Phone Armando Lopes MD Primary Care Provider Unavailab andrea Reyna Galdamez Unavailable [phone] Allergies Allergen (clinical drug ingredient) Drug/Non Drug Allergy documented on EMR Reaction Allergy Type Onset Date Status codeine Codeine vomiting Drug Allergy Active Reason For Referral No Information Medications Medication SIG (Take, Route, Fr equency, Duration) Notes Start Date End Date Status Feldene 20 MG 1 capsule with food Orally Once a day; Duration: 30 day(s) 03/25/2013 Not-Taking Physical Therapy . . . 2-3x/week; Durat ion: 3-4 weeks 03/25/2013 Active Problems Problem Type SNOMED Code ICD Code Onset Dates Problem Status W/U Status Risk Notes Problem Bursitis (56418876) Bursitis (727.3) Active confirmed Problem Calcaneal spur (94682190) Calcaneal spur (726.73) Active confirmed Problem Myositis (75439819) Myositis (729.1) Active confirmed Problem Pain in limb (38326687) Pain in Limb (729.5) Active confirmed Problem Plantar fasciitis (418845043) Plantar Fasciitis (728.71) Active confirmed Plan Of Treatment Pending Test Test Name Order Date X ray : Foot, right 3V 01/27/2013 [id number] TENDON SHEATH/LIGAMENT 0 11/08/2013 [id number] TENDON SHEATH/LIGAMENT 0 12/07/2013 Insurance Providers Payer Name Payer Address Payer Phone Subscriber Number Group Number Insured Name Patient Relationship to Insured Coverage Start Date Coverage End Date [facility] [address] [place] [address] [phone] [id number] [place]y [place] Self - patient is the insured Medical (General) History Medical History History ICD Code chicken pox Surgical History Surgery Date(Month/Year) section
== END 2024-10-27 09:10 | disposition home or self-care (01) ==
PROVIDERS: Emergency Provider Emergency Medicine; PCP Internal Medicine
DX: H00.016 Hordeolum externum left eye, unspecified eyelid (principal); L03.213 Periorbital cellulitis
CPT/HCPCS: 99283; 99284

== ENCOUNTER 2024-12-08 07:43 | Outpatient (REF) | payer OTHER, SELFPAY ==
--- OUTSIDE RECORDS SUMMARY | 2024-12-08 07:49 | XMS_ITS | Encounter Summary ---
Author Organization [facility] Address [address] [place] [address] Phone Care Team Providers Care Sas Clinical Programmer Name Role Phone Kimberly Johns Primary Care Provider [phone]- [phone] Encounter Details Date Type Department Care Team (Late st Contact Info) Description 09/19/2017 Transcribe Orders [facility] [address] [place] [address] Kimberly Johns PA [address] [facility] [address] [place] [address] [email or web address] Tobacco Use Types Packs/Day [...] on filedocumented in this encounter Care Teams Sas Clinical Programmer Relationship Specialty Start Date End Date Kimberly Johns PA [email or web address] PCP - General Unknown Provider Specialty 09/19/17 documented as of this encounter Additional Source Comments The information contained in this document represents components of the legal health record. It is not the complete legal health record.[facility]
--- OUTSIDE RECORDS SUMMARY | 2024-12-08 07:49 | XMS_ITS | Patient Health Record ---
Author Organization [facility] Chrissy Arevalo Address [address] [facility] [place] [address] Care Team Providers Care Language Assistant Name Role Phone Armando Lopes MD Primary Care Provider Unavailab andrea Reyna Galdamze Unavailable [phone] Allergies Allergen (clinical drug ingredient) Drug/Non Drug [...] Status W/U Status Risk Notes Problem Bursitis (27553763) Bursitis (727.3) Active confirmed Problem Calcaneal spur (31495008) Calcaneal spur (726.73) Active confirmed Problem Myositis (08612620) Myositis (729.1) Active confirmed Problem Pain in limb (83818793) Pain in Limb (729.5) Active confirmed Problem Plantar fasciitis (903238991) Plantar Fasciitis (728.71) Active confirmed Plan Of Treatment Pending Test Test Name Order Date X ray : Foot, right 3V 01/27/2013 [id number] TENDON SHEATH/LIGAMENT 0 11/08/2013 [id number] TENDON SHEATH/LIGAMENT 0 12/07/2013 Insurance Providers Payer Name Payer Address Payer Phone Subscriber Number Group Number Insured Name Patient Relationship to Insured Coverage Start Date Coverage End Date [facility] [address] [place] [address] [phone] [id number] Gaby Hill Self - patient is the insured Medical (General) History Medical History History ICD Code chicken pox Surgical History Surgery Date(Month/Year) section
--- OUTSIDE RECORDS SUMMARY | 2024-12-08 07:49 | XMS_ITS | Clinical Summary ---
Author Organization [facility] Address [address] [place] [address] [place] [address] Phone Care Team Providers Care Extruding Department Supervisor Name Role Phone Kimberly Johns Primary Care Provider [phone] Social History Tobacco Use Types Packs/Day Years Used Date Smoking Tobacco: Never Assessed Comments Unknown Sex and Gender Information Value Date Recorded Sex Assigned at Female 09/19/2017 11:08 AM EDT Legal Sex Female 11:05 AM EDT Gender Identity Female 09/19/2017 11:08 AM EDT Sexual Orientation Not on file Plan of Treatment Not on file Medical Devices Not on file Insurance [address] [place], [place] [address]O O O O HMO O HMO [facility] HMO Care Teams Extruding Department Supervisor Relationship Specialty Start Date End Date Kimberly Johns PA [email or web address] PCP - General Unknown Provider Specialty 09/19/17 Additional Source Comments The information contained in this document represents components of the legal health record. It is not the complete legal health record.[facility]
[2024-12-08 08:14] LABS: MANUAL DIFF FLAG NO
[2024-12-08 08:49] LABS: Hematocrit 40.3 % (37.0-47.0); Hemoglobin 13.5 g/dl (12.0-16.0); Imm Gran Abs Auto 0.03 X10*3/uL (0.00-0.03); Imm Gran Pct Auto 0.3 % (0.0-0.4); Lymphocytes Absolute Auto 2.3 X10*3/uL (1.2-4.9); Mean Corpuscular HGB Conc 33.5 g/dl (31.0-35.0); Mean Corpuscular Hemoglobin 29.4 pg (27.0-33.0); Mean Corpuscular Volume 87.8 fL (80.0-98.0); NRBC Abs Auto 0.000 X10*3/uL (0.0-0.012); NRBC Pct Auto 0.0 /100WBC (0.0-0.2); Platelet Count 274 X10*3/uL (160-400); Red Blood Count 4.59 X10*6/uL (4.20-5.50); White Blood Count 8.8 X10*3/uL (4.8-10.8)
[2024-12-08 09:21] LABS: Cholesterol 173 mg/dL (<200); HDL Cholesterol 38 mg/dL (>40); Triglycerides 77 mg/dL (<150)
== END 2024-12-08 07:44 | disposition home or self-care (01) ==
LOC: HO.LAB 07:43
PROVIDERS: PCP Internal Medicine; Visit Provider Internal Medicine
DX: Z00.01 Encounter for general adult medical examination with abnormal findings (principal); Z13.6 Encounter for screening for cardiovascular disorders; Z13.1 Encounter for screening for diabetes mellitus
CPT/HCPCS: 36415; 80061; 82947; 85025

== ENCOUNTER 2024-12-22 10:52 | Outpatient (REF) | payer OTHER, SELFPAY ==
--- NOTE | ~2024-12-22 | MM_ITS ---
EXAMINATION: MM SCREENING DIGITAL BREAST TOMOSYNTHESIS, BILATERAL CLINICAL INFORMATION: Screening. Asymptomatic. COMPARISON: Mammography: Comparison is made with available priors TECHNIQUE: Digital breast mammography with tomosynthesis is performed in both the craniocaudal and mediolateral oblique views along with computer-aided detection (CAD). FINDINGS: There are scattered areas of fibroglandular density (ACR BI-RADS breast composition Category b). There are no significant masses, abnormal calcifications, or other abnormalities. MM/MM tomosynthesis screening BI IMPRESSION: No mammographic evidence of malignancy. ASSESSMENT: BI-RADS BI-RADS 1 - Negative RECOMMENDATION: Routine annual mammography screening. 1 year F/U This examination should not preclude the clinical evaluation of a suspicious palpable abnormality. This patient's information was entered into a reminder system with a target due date for their next mammogram. Electronically signed by: Mitzy Jasmine DO 12/22/2024 02:48 PM EDT
--- OUTSIDE RECORDS SUMMARY | 2024-12-22 13:51 | XMS_ITS | Patient Health Record ---
Author Organization [facility] Chrissy Arevalo Address [address] [place] [address] Care Team Providers Care Laser Technician Name Role Phone Armando Lopes MD Primary Care Provider Unavailab andrea Reyna Galdamez Unavailable [phone] Allergies Allergen (clinical drug ingredient) Drug/Non Drug [...] Status W/U Status Risk Notes Problem Bursitis (82412501) Bursitis (727.3) Active confirmed Problem Calcaneal spur (37547589) Calcaneal spur (726.73) Active confirmed Problem Myositis (91573377) Myositis (729.1) Active confirmed Problem Pain in limb (64678547) Pain in Limb (729.5) Active confirmed Problem Plantar fasciitis (728392135) Plantar Fasciitis (728.71) Active confirmed Plan Of Treatment Pending Test Test Name Order Date X ray : Foot, right 3V 01/27/2013 [id number] TENDON SHEATH/LIGAMENT 0 11/08/2013 [id number] TENDON SHEATH/LIGAMENT 0 12/07/2013 Insurance Providers Payer Name Payer Address Payer Phone Subscriber Number Group Number Insured Name Patient Relationship to Insured Coverage Start Date Coverage End Date [facility] [address] [place] [address] [phone] [id number] Gaby Hill Self - patient is the insured Medical (General) History Medical History History ICD Code chicken pox Surgical History Surgery Date(Month/Year) section
--- OUTSIDE RECORDS SUMMARY | 2024-12-22 13:51 | XMS_ITS | Clinical Summary ---
Author Organization [facility] Address [address] [place] [address] [place] [address] Phone Care Team Providers Care Intake Clinician Name Role Phone Kimberly Johns Primary Care Provider Social History Tobacco Use Types Packs/Day Years Used Date Smoking Tobacco: Never Assessed Comments Unknown Sex and Gender Information Value Date Recorded Sex Assigned at Female 09/19/2017 11:08 AM EDT Legal Sex Female 11:05 AM EDT Gender Identity Female 09/19/2017 11:08 AM EDT Sexual Orientation Not on file Plan of Treatment Not on file Medical Devices Not on file Insurance O O O O O HMO O HMO [facility] HMO Care Teams Intake Clinician Relationship Specialty Start Date End Date Kimberly Johns PA [email or web address] PCP - General Unknown Provider Specialty 09/19/17 Additional Source Comments The information contained in this document represents components of the legal health record. It is not the complete legal health record.[facility]
--- OUTSIDE RECORDS SUMMARY | 2024-12-22 13:51 | XMS_ITS | Encounter Summary ---
Author Organization [facility] Address [address] [place] [address] Phone Care Team Providers Care Duct Layer Helper Name Role Phone Kimberly Johns Primary Care Provider [phone] Encounter Details Date Type Department Care Team (Late st Contact Info) Description 09/19/2017 Transcribe Orders [facility] [address] [place] [address] Kimberly Johns PA [address] [place] [address] [address] [place] [address] [email or web address] et Social History Tobacco Use Types Packs/Day [...] on filedocumented in this encounter Care Teams Duct Layer Helper Relationship Specialty Start Date End Date Kimberly Johns PA [email or web address] PCP - General Unknown Provider Specialty 09/19/17 documented as of this encounter Additional Source Comments The information contained in this document represents components of the legal health record. It is not the complete legal health record.[facility]
== END 2024-12-22 10:53 | disposition home or self-care (01) ==
LOC: HO.MAMMO 10:52
PROVIDERS: PCP Internal Medicine; Visit Provider Internal Medicine
DX: Z12.31 Encounter for screening mammogram for malignant neoplasm of breast (principal)
CPT/HCPCS: 77063; 77067

== ENCOUNTER → 2024-12-22 11:00 | Outpatient (BNV) | payer OTHER, SELFPAY | PROVIDERS: PCP Internal Medicine; Visit Provider Internal Medicine | DX: Z12.31 Encounter for screening mammogram for malignant neoplasm of breast (principal) | CPT/HCPCS: 77063; 77067 ==

== ENCOUNTER 2025-01-14 11:34 | Outpatient (REF) | payer OTHER, SELFPAY ==
[2025-01-14 11:48] LABS: MANUAL DIFF FLAG NO
[2025-01-14 12:05] LABS: Hematocrit 42.3 % (37.0-47.0); Hemoglobin 14.1 g/dl (12.0-16.0); Imm Gran Abs Auto 0.03 X10*3/uL (0.00-0.03); Imm Gran Pct Auto 0.2 % (0.0-0.4); Lymphocytes Absolute Auto 2.3 X10*3/uL (1.2-4.9); Mean Corpuscular HGB Conc 33.3 g/dl (31.0-35.0); Mean Corpuscular Hemoglobin 29.1 pg (27.0-33.0); Mean Corpuscular Volume 87.2 fL (80.0-98.0); NRBC Abs Auto 0.000 X10*3/uL (0.0-0.012); NRBC Pct Auto 0.0 /100WBC (0.0-0.2); Platelet Count 329 X10*3/uL (160-400); Red Blood Count 4.85 X10*6/uL (4.20-5.50); White Blood Count 13.1 X10*3/uL (4.8-10.8)
[2025-01-14 12:41] LABS: Iron 93 mcg/dL (30-160); Percent Iron Saturation 34 % (15-50); Total Iron Binding Capacity 277 mcg/dL (228-428); Unsaturated Iron Binding 184 ug/dL
[2025-01-14 12:47] LABS: Ferritin 53 ng/mL (10-250)
== END 2025-01-14 11:35 | disposition home or self-care (01) ==
LOC: HO.LAB 11:34
PROVIDERS: PCP Internal Medicine; Visit Provider Internal Medicine
DX: K92.1 Melena (principal)
CPT/HCPCS: 36415; 82728; 83540; 85025; 85652

== ENCOUNTER 2025-03-22 08:53 | Outpatient (AMB) | payer OTHER, SELFPAY ==
--- NOTE | 2025-03-22 09:03 | A.OFFVIS_ITS ---
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 She would like a prescription for PRN Diflucan for yeast infections that can come on rather quickly so it really is helpful to have the prescription on hand if she needs it however she has adjusted her diet and reduced any extraneous sugar and has really noticed a big improvement. She is working on being as healthy as she can be thinking about taking up snow shoeing when her kids her skiing. She is sexually active she had her tubal ligation and her has a vasectomy so they have no concerns about that she is noticing some rosy menopausal symptoms and had noticed some brain fog but that also improved with her diet as well. Her last Pap smear was in 2021 was negative and she never had any abnormals however her primary had said she was due and to ease any concerns we will do an today she declined any BV yeast testing as she is not symptomatic at the moment and has no need for STI testing. PFSH Surgical History Hx of colonoscopy Hx of endoscopy H/O tubal ligation H/O dilation and curettage Hx of section Family History Mother Breast cancer Dermatopathic lymphadenitis Father Diabetes 1.5, managed as type 2 Skin cancer Social History Household Members: Significant Other and Family Alcohol intake: current Alcohol intake frequency: holidays/special occasions only Patient Tobacco Use Status: Never used Tobacco Patient : No Female Reproductive History Menstrual Age of Menarche: 13 Duration of menses: 3-5 days Date of last menstrual period: 02/24/25 control method: none and permanent sterilization Total pregnancies: 5 Full term: 3 Ab spontaneous: 2 Date of last pap smear: 01/28/22 (negative pap smear, negative hpv ) Date of Mammogram: 12/22/24 (bi rad 1) Physical Exam Vital Signs: Last Vital Signs BP 126/86 03/22/25 09:11 BMI result Body Mass Index 32.6 Const General: healthy appearing, comfortable, no acute distress, well developed and alert Nutritional Appearance: average body habitus Orientation/consciousness: patient oriented x3 Limitations: no limitations HEENT Head: Yes normocephalic Neck Neck: Yes normal visual inspection Chest Chest palpation & inspection: normal inspection of the chest Breast/axilla inspection: normal inspection of the breasts and normal inspection of the axillae Breast/axilla palpation: normal palpation of the breasts and normal palpation of the axillae Resp Effort & Inspection: normal respiratory effort GI Inspection: Yes normal to inspection, No Abdominal wall edema and No distended Palpation (GI): Soft to palpation and nontender Other: External exam is within normal limits no erythema. Vagina is pink and moist with normal scant white discharge consistent with luteal phase cervix pink multiparous smooth no abnormal discharge midposition mobile nontender uterus is anteverted mobile nontender adnexa nontender good tone with Kegel. General: Yes bladder normal to palpation External Female Exam: normal external appearance and normal appearance of the urethra Speculum Exam - Vagina: normal appearance of the vagina, normal palpation and normal vaginal discharge Speculum Exam - Cervix: normal appearance of the cervix, normal palpation and nontender Bimanual exam- vagina & uterus: normal bimanual exam, normal palpation, uterine size normal, bladder normal to palpation, consistency normal, normal palpation, uterine mobility normal, uterine shape normal, No Cervical tenderness present, non-tender and no cervical motion tenderness Bimanual Exam- Adnexa, other: normal adnexae, no masses, normal and No adnexal tenderness Neuro General: patient oriented x3 Results Reviewed Results Reviewed: Name: Gaby Hill Age/Sex: 42/F Attending: Ramandeep Monzon CNM : 1980 Submitted by: Ramandeep Monzon CNM Copies to: MR #: [id number] Status: DEP REF Collected: 01/28/22 Location: [facility] Received: 01/29/22 Interpretation Satisfactory for evaluation. Negative for intraepithelial lesion or malignancy. HPV mRNA E6/E7: NOT DETECTED This assay detects E6/E7 viral messenger RNA (mRNA) from 14 high-risk HPV types (16, 18, 31, 33, 35, 39, 45, 51, 52, 56, 58, 59, 66, 68) HPV testing performed by [facility], [place], [place]. See reference laboratory pion of the EMR for entire report. Clinical Information LMP: 01/13/22 Previous PAP test: Unknown Material Received ThinPrep-Cervical Electronically Signed By: IRENA Washburn (ASCP) 02/05/22 1529 The Pap Test is a screening procedure with the inherent possibility of both false negative and false positive results. Results should be interpreted in the context of historic and current clinical findings. Reliability of the Pap Test is enhanced by performing the test on a regular repetitive basis. Patient: Gaby Hill Age/Sex: 42/F MR#: [id number] Page 1 of 1 Assessment & Plan Assessment & Plan (1) Well woman exam with routine gynecological exam: Code(s): Z01.419 - Encounter for gynecological examination (general) (routine) without abnormal findings Category: Medical (2) Cervical cancer screening: Comment: 01/28/2022 Pap is negative with negative HPV. Code(s): Z12.4 - Encounter for screening for malignant neoplasm of cervix Category: Medical (3) Yeast infection involving the vagina and surrounding area: Comment: Occasionally recur; patient has no current symptoms -desires p.r.n. prescriptions for when she needs them; sent. Code(s): B37.31 - Acute candidiasis of vulva and vagina Category: Medical Plan -----Discussed in this visit the following: healthy balanced diet, regular and consistent exercise, getting recommended health screens, doing the best she can for her particular health concerns, kegel exercises, pap smear screening and followup recommendations, mammography screening and SBE, normal changes in cycles in her life stage---she is up-to-date on her mammograms, She gets her labs through her P[facility] and was told everything was normal though she is working on improving her fasting blood sugar, through dietary changes. . Discussed her improvement in overall health and diet and how she feels with the changes she has made and how it even helped with recurrence of yeast infections. Prescription for PRN Diflucan and Monistat sent to the pharmacy so she can have access to it should she need it. Prevention is what she has been working on and it has been working. She is up-to-date with her mammograms Pap was done as her primary had indicated it was due although it was negative in 2021. Screening for infection was declined as she has no symptoms or concerns today . Discussed all the good thing she has been doing in the effects on her health in including diet. And also discussed rosy menopausal changes which she is experiencing as normal. Medications: New miconazole nitrate 2% (Miconazole-7) 1 appful vaginal BEDTIME 45 grams 4RF 7 days fluconazole may repeat second dose 72 hrs after first dose if symptoms persist, use when necessary 150 mg PO Q3D 2 tabs 6RF 2 doses Coding Level of Care Code Est Pt Prev Care 40-64y(67132) Diagnoses Well woman exam with routine gynecological exam Z01.419 Cervical cancer screening Z12.4 Yeast infection involving the vagina and surrounding area B37.31
[2025-03-22 09:11] VITALS: BP 126/86; BMI 32.6
--- OUTSIDE RECORDS SUMMARY | 2025-03-22 09:49 | XMS_ITS | Patient Health Record ---
Author Organization [facility] Chrissy Arevalo Address [address] [facility] [place] [address] Care Team Providers Care Emission Technician Name Role Phone Armando Lopes MD Primary Care Provider Unavailab andrea Reyna Galdamez Unavailable [phone] Allergies Allergen (clinical drug ingredient) Drug/Non Drug [...] Status W/U Status Risk Notes Problem Bursitis (96652401) Bursitis (727.3) Active confirmed Problem Calcaneal spur (99596611) Calcaneal spur (726.73) Active confirmed Problem Myositis (92798745) Myositis (729.1) Active confirmed Problem Pain in limb (46437021) Pain in Limb (729.5) Active confirmed Problem Plantar fasciitis (196321682) Plantar Fasciitis (728.71) Active confirmed Plan Of Treatment Pending Test Test Name Order Date X ray : Foot, right 3V 01/27/2013 [id number] TENDON SHEATH/LIGAMENT 0 11/08/2013 [id number] TENDON SHEATH/LIGAMENT 0 12/07/2013 Insurance Providers Payer Name Payer Address Payer Phone Subscriber Number Group Number Insured Name Patient Relationship to Insured Coverage Start Date Coverage End Date [facility] [address] [place] [address] [phone] [id number] Gaby Hill Self - patient is the insured Medical (General) History Medical History History ICD Code chicken pox Surgical History Surgery Date(Month/Year) section
--- OUTSIDE RECORDS SUMMARY | 2025-03-22 09:49 | XMS_ITS | Clinical Summary ---
Author Organization [facility] Address [address] [place] [address] [place] [address] Phone Care Team Providers Care Service Inspector Name Role Phone Kimberly Johns Primary Care Provider [phone] Social History Tobacco Use Types Packs/Day Years [...] O O O O HMO O HMO [facility] HMO Care Teams Service Inspector Relationship Specialty Start Date End Date Kimberly Johns PA [email or web address] PCP - General Unknown Provider Specialty 09/19/17 Additional Source Comments The information contained in this document represents components of the legal health record. It is not the complete legal health record.[facility]
--- OUTSIDE RECORDS SUMMARY | 2025-03-22 09:49 | XMS_ITS | Encounter Summary ---
Author Organization [facility] Address [address] [place] [address] Phone Care Team Providers Care Weaving Supervisor Name Role Phone Kimberly Johns Primary Care Provider [phone] Encounter Details Date Type Department Care Team (Late st Contact Info) Description 09/19/2017 Transcribe Orders [facility] [place] [place] [address] Kimberly Johns PA [address] [place] [address] [address] [place] [address] [email or web address] Social History Tobacco Use Types Packs/Day [...] on filedocumented in this encounter Care Teams Weaving Supervisor Relationship Specialty Start Date End Date Kimberly Johns PA [email or web address] PCP - General Unknown Provider Specialty 09/19/17 documented as of this encounter Additional Source Comments The information contained in this document represents components of the legal health record. It is not the complete legal health record.[facility]
== END 2025-03-22 10:36 | disposition home or self-care (01) ==
LOC: HO.HWSM 08:53
PROVIDERS: PCP Internal Medicine; Visit Provider Advanced Practice Midwife
DX: Z01.419 Encounter for gynecological examination (general) (routine) without abnormal findings (principal); Z12.4 Encounter for screening for malignant neoplasm of cervix; B37.31 Acute candidiasis of vulva and vagina
CPT/HCPCS: 99396; 99459

== ENCOUNTER 2025-03-22 08:53 | Outpatient (REF) | payer OTHER, SELFPAY ==
--- OUTSIDE RECORDS SUMMARY | 2025-03-22 18:36 | XMS_ITS | Clinical Summary ---
Author Organization [facility] Address [address] [place] [address] [place] [address] Phone Care Team Providers Care Make Ready Mechanic Name Role Phone Kimberly Johns Primary Care [...] O O O O HMO O HMO [facility] HMO Care Teams Make Ready Mechanic Relationship Specialty Start Date End Date Kimberly Johns PA [email or web address] - [email or web address] PCP - General Unknown Provider Specialty 09/19/17 Additional Source Comments The information contained in this document represents components of the legal health record. It is not the complete legal health record.[facility]
--- OUTSIDE RECORDS SUMMARY | 2025-03-22 18:36 | XMS_ITS | Encounter Summary ---
Author Organization [facility] Address [address] [place] [address] Phone Care Team Providers Care Team Foreman Name Role Phone Kimberly Johns Primary Care Provider [phone] Encounter Details Date Type Department Care Team (Late st Contact Info) Description 09/19/2017 Transcribe Orders [facility] [place] [place] [address] Kimberly Johns PA [address] [place] [address] [address] [place] [address] [email or web address] Social History Tobacco Use Types Packs/Day [...] on filedocumented in this encounter Care Teams Team Foreman Relationship Specialty Start Date End Date Kimberly Johns PA [email or web address] PCP - General Unknown Provider Specialty 09/19/17 documented as of this encounter Additional Source Comments The information contained in this document represents components of the legal health record. It is not the complete legal health record.[facility]
== END 2025-03-22 08:54 | disposition home or self-care (01) ==
LOC: HO.LNP 08:53
PROVIDERS: PCP Internal Medicine; Visit Provider Advanced Practice Midwife
DX: Z01.419 Encounter for gynecological examination (general) (routine) without abnormal findings (principal); B37.31 Acute candidiasis of vulva and vagina; Z98.51 Tubal ligation status
CPT/HCPCS: 87626; 88175